=== PATIENT | female | born 1960 | race Caucasian/White ===

== ENCOUNTER 2020-02-16 15:00 | Inpatient (IN) | payer BC, SELFPAY ==
[2020-02-16 16:48] VITALS: BMI 35.4
[2020-02-17 06:51] VITALS: BP 138/60; PULSE 75; RESP 18; TEMP 36.2; O2SAT 92
[2020-02-17 07:00] VITALS: BMI 78.1
[2020-02-17] MEDS: Fenofibrate 160 MG TABLET PO (10:34)
[2020-02-17 10:35] VITALS: BP 138/60; PULSE 75
[2020-02-17] MEDS: Escitalopram Oxalate 20 MG TABLET PO (10:35)
[2020-02-17] MEDS: atenoloL 25 MG TABLET PO (10:35)
[2020-02-17] MEDS: Gabapentin 300 MG CAPSULE PO ×4 (10:35→21:58)
[2020-02-17] MEDS: buPROPion HCl XL 150 MG TAB.ER.24H PO (14:25)
[2020-02-17 14:46] VITALS: BMI 35.4
[2020-02-17 16:58] VITALS: BP 143/60; PULSE 74; TEMP 37.4
--- NOTE | 2020-02-17 17:31 | HO.PSYADMNOT ---
HPI Chief Complaint: MAJOR DEPRESSIVE DISORDER Sources of Information: patient interviewed, chart reviewed and crisis/core team assessment reviewed HPI Narrative: 60 year old woman who was admitted after she presented with SI in the context of alcohol use. She had a plan to jump off the bridge. She reports that she feels trapped in her life and that she is not able to live it the way that she wants. She has been trying to end her relationship but her BF keeps coming back and she does not want to hurt him. She acknowleges that she has been drinking more that she should. She reports that she has been increasingly sad, has no motivation and that she has little energy. She is relieved to be in the hospital and can be safe. She is interested in getting a therapist and prescriber who can help her to learn to set more limits for herself. She has firearms at home but states that she would never use them. Past Psychiatric History: No current providers. History of an OD in 2016 Medical Evaluation Reviewed: Yes PMFSH Narrative: Nil acute. Medically cleared in the ER. No acute issues. Coronavirus negative. Family History: Family history of depression Social History: Lives alone. twice. Close to her children. Substance History: Denies that alcohol is a problem. Level in ER 100, Denies other substances Trauma History: Denies Diagnostics Vital Signs (24Hr): Vital Signs - 24 hr 02/17/20 06:51 02/17/20 10:35 02/17/20 16:58 Temperature 97.2 F 99.3 F Pulse Rate 75 75 74 Respiratory Rate 18 Blood Pressure 138/60 138/60 143/60 H Pulse Oximetry 92 Body Mass Index 35.4 Meds/Allergies Meds Home Medications Medication Instructions Recorded Confirmed Type atenolol 25 mg PO DAILY 02/16/20 02/16/20 History escitalopram oxalate [Lexapro] 20 mg PO DAILY 02/16/20 02/16/20 History fenofibrate nanocrystallized 145 mg PO DAILY 02/16/20 02/16/20 History [Tricor] gabapentin 300 mg PO QID 02/16/20 02/16/20 History valacyclovir 1,000 mg PO BID PRN 02/16/20 02/16/20 History Allergies Allergies Allergy/AdvReac Type Severity Reaction Status Date / Time DAIRY PRODUCTS Allergy Unknown HIVES, Uncoded 09/17/20 16:38 VISION ISSUES Mental Status Exam Mental Status Exam Patient Appearance: Well Grooomed Level of Consciousness: Appropriate Patient Behavior: Appropriate, Good Eye Contact and Crying Mood Description: Depressed, Fearful, Flat and Sad Affect Description: Depressed, Fearful, Anxious, Flat and Sad Patient Cognition Impaired: No Ability to Follow Directions: Good Speech Pattern: Clear, Spontaneous Speech and Coherent Memory Description: Intact Hallucinations: None Delusions: Not Present Thought Process: Intact and Goal Oriented Thought Content: Circumstantial Judgement: Fair Assessment & Plan Assessment & Plan (1) Suicidal ideation: Status: Acute Code(s): R45.851 - Suicidal ideations Assessment and Plan: Safety evaluation (2) Depressed mood: Status: Acute Code(s): R45.89 - Other symptoms and signs involving emotional state Assessment and Plan: Add wellbutrin to current medication regime Patient educated on: diagnosis, medication risk/benefits and substance abuse Reason for continued inpatient stay Substantial Risk for: harm to self
[2020-02-18 06:22] VITALS: BP 107/54; PULSE 71; RESP 14; TEMP 36.4; O2SAT 95
[2020-02-18] MEDS: buPROPion HCl XL 150 MG TAB.ER.24H PO (09:06)
[2020-02-18] MEDS: Escitalopram Oxalate 20 MG TABLET PO (09:06)
[2020-02-18 09:07] VITALS: BP 107/54; PULSE 71
[2020-02-18] MEDS: Gabapentin 300 MG CAPSULE PO ×4 (09:07→23:18)
[2020-02-18] MEDS: atenoloL 25 MG TABLET PO (09:07)
[2020-02-18] MEDS: Fenofibrate 160 MG TABLET PO (09:07)
--- NOTE | 2020-02-18 19:14 | HO.PSYCHPN ---
Assessment & Plan Assessment & Plan (1) Depressed mood: Status: Acute Code(s): R45.89 - Other symptoms and signs involving emotional state Assessment and Plan: CT medication without change Refer to [facility] Anticiapte DC 02/21/20 or 02/22/20 Greater than 50% of the session was spent on counseling and/or coordination of care Subjective Subjective Date of Service: 02/18/20 Reason For Visit: MAJOR DEPRESSIVE DISORDER Subjective Notes: Conditional Voluntary Interim History: Maeve was much brighter and positive. She is finding groups helpful and she wants to go to [facility]. She was encouraged to speak with her BF about terminating the relationship while inpatient since she has support to stick to her resolve. Medication Compliance: Yes Side effects from medications: No Attending Groups: Yes Review of Systems Acute medical concerns: No Medical Review of Systems: unchanged Mental Status Exam Mental Status Exam Patient Appearance: Well Grooomed Patient Orientation: Person, Place and Time Level of Consciousness: Appropriate Patient Behavior: Appropriate Mood Description: Calm, Anxious and Nervous Affect Description: Calm and Depressed Patient Cognition Impaired: No Ability to Follow Directions: Good Speech Pattern: Clear Memory Description: Intact Thought Content: positive for Circumstantial and positive for Goal Oriented Depressive Symptoms: Isolating-Friends/Family, Feelings of Guilt and Unhappiness Judgement: Fair Judgement and Insight: Improving understanding of illness Diagnostics Vital Signs (24Hr): Vital Signs - 24 hr 02/18/20 06:22 02/18/20 09:07 Temperature 97.5 F Pulse Rate 71 71 Respiratory Rate 14 Blood Pressure 107/54 L 107/54 L Pulse Oximetry 95 Body Mass Index 35.4 Medications Medications Current Medications Generic Name Dose Route Start Last Admin Trade Name Farshadq PRN Reason Stop Dose Admin Acetaminophen 650 mg 02/17/20 00:00 Acetaminophen 325 Mg Tablet PO Q6H PRN headache/pain, mild (scale 1-3) Al Hydroxide/Mg Hydroxide 30 ml 02/17/20 00:00 Magnesium Hydrox/Alum Hydrox 30 Ml Oral.Susp PO Q6H PRN Heartburn/nausea Atenolol 25 mg 02/17/20 09:00 02/18/20 09:07 Atenolol 25 Mg Tablet PO 25 mg DAILY FORTINO Administration Protocol Bupropion HCl 150 mg 02/17/20 12:00 02/18/20 09:06 Bupropion Hcl Xl 150 Mg Tab.Er.24h PO 150 mg DAILY FORTINO Administration Escitalopram Oxalate 20 mg 02/17/20 09:00 02/18/20 09:06 Escitalopram Oxalate 20 Mg Tablet PO 20 mg DAILY FORTINO Administration Fenofibrate 160 mg 02/17/20 09:00 02/18/20 09:07 Fenofibrate 160 Mg Tablet PO 160 mg DAILY FORTINO Administration Gabapentin 300 mg 02/17/20 09:00 02/18/20 16:47 Gabapentin 300 Mg Capsule PO 300 mg QID FORTINO Administration Hydroxyzine HCl 25 mg 02/17/20 00:00 Hydroxyzine Hcl 25 Mg Tablet PO BEDTIME MRX1 PRN night time anxiety Magnesium Hydroxide 30 ml 02/17/20 00:00 Milk Of Magnesia 30 Ml Oral.Susp PO Q24H PRN Constipation Trazodone HCl 50 mg 02/17/20 00:00 Trazodone Hcl 50 Mg Tablet PO BEDTIME MRX1 PRN Insomnia Allergies Allergies Allergy/AdvReac Type Severity Reaction Status Date / Time DAIRY PRODUCTS Allergy Unknown HIVES, Uncoded 02/03/20 16:38 VISION ISSUES
[2020-02-18 23:18] VITALS: TEMP 36
[2020-02-18 23:24] VITALS: BP 141/68; PULSE 75
[2020-02-19 06:40] VITALS: BP 142/62; PULSE 70; RESP 18; TEMP 36.5
[2020-02-19 08:53] VITALS: BP 142/62; PULSE 70
[2020-02-19] MEDS: atenoloL 25 MG TABLET PO (08:53)
[2020-02-19] MEDS: Fenofibrate 160 MG TABLET PO (08:53)
[2020-02-19] MEDS: buPROPion HCl XL 150 MG TAB.ER.24H PO (08:53)
[2020-02-19] MEDS: Gabapentin 300 MG CAPSULE PO ×2 (08:54→13:29)
[2020-02-19] MEDS: Escitalopram Oxalate 20 MG TABLET PO (08:54)
--- NOTE | 2020-02-19 12:10 | HO.PSYCHPN ---
Assessment & Plan Assessment & Plan (1) Depressed mood: Status: Acute Code(s): R45.89 - Other symptoms and signs involving emotional state Assessment and Plan: less depressed (2) Suicidal ideation: Status: Acute Code(s): R45.851 - Suicidal ideations Assessment and Plan: denies today (3) Anxiety: Status: Acute Code(s): F41.9 - Anxiety disorder, unspecified Assessment and Plan: going up and down, will adjust gabapentin Greater than 50% of the session was spent on counseling and/or coordination of care Subjective Subjective Date of Service: 02/19/20 Reason For Visit: MAJOR DEPRESSIVE DISORDER Subjective Notes: Conditional Voluntary Interim History: Feeling overall ok - no si but anxiety up and down Medication Compliance: Yes Side effects from medications: No Attending Groups: Yes Review of Systems Acute medical concerns: No Medical Review of Systems: unchanged Mental Status Exam Mental Status Exam Narrative: appropriate affect good eye contact mood anxious Patient Orientation: Person, Place, Time and Situation Level of Consciousness: Awake and Alert Patient Behavior: Appropriate, Cooperative and Anxious Mood Description: Appropriate and Anxious Affect Description: Constricted Speech Pattern: Clear and Appropriate Memory Description: Intact Hallucinations: None Delusions: Not Present Thought Process: Intact Thought Content: positive for Intact Depressive Symptoms: Increased Anxiety and Muscle Tension Judgement: Good Diagnostics Vital Signs (24Hr): Vital Signs - 24 hr 02/18/20 23:18 02/18/20 23:24 02/19/20 06:40 Temperature 96.8 F 97.7 F Pulse Rate 75 70 Respiratory Rate 18 Blood Pressure 141/68 H 142/62 H 02/19/20 08:53 Temperature Pulse Rate 70 Respiratory Rate Blood Pressure 142/62 H Body Mass Index 35.4 Medications Medications Current Medications Generic Name Dose Route Start Last Admin Trade Name Freq PRN Reason Stop Dose Admin Acetaminophen 650 mg 02/17/20 00:00 Acetaminophen 325 Mg Tablet PO Q6H PRN headache/pain, mild (scale 1-3) Al Hydroxide/Mg Hydroxide 30 ml 02/17/20 00:00 Magnesium Hydrox/Alum Hydrox 30 Ml Oral.Susp PO Q6H PRN Heartburn/nausea Atenolol 25 mg 02/17/20 09:00 02/19/20 08:53 Atenolol 25 Mg Tablet PO 25 mg DAILY FORTINO Administration Protocol Bupropion HCl 150 mg 02/17/20 12:00 02/19/20 08:53 Bupropion Hcl Xl 150 Mg Tab.Er.24h PO 150 mg DAILY FORTINO Administration Escitalopram Oxalate 20 mg 02/17/20 09:00 02/19/20 08:54 Escitalopram Oxalate 20 Mg Tablet PO 20 mg DAILY FORTINO Administration Fenofibrate 160 mg 02/17/20 09:00 02/19/20 08:53 Fenofibrate 160 Mg Tablet PO 160 mg DAILY FORTINO Administration Gabapentin 300 mg 02/17/20 09:00 02/19/20 08:54 Gabapentin 300 Mg Capsule PO 300 mg QID FORTINO Administration Hydroxyzine HCl 25 mg 02/17/20 00:00 Hydroxyzine Hcl 25 Mg Tablet PO BEDTIME MRX1 PRN night time anxiety Magnesium Hydroxide 30 ml 02/17/20 00:00 Milk Of Magnesia 30 Ml Oral.Susp PO Q24H PRN Constipation Trazodone HCl 50 mg 02/17/20 00:00 Trazodone Hcl 50 Mg Tablet PO BEDTIME MRX1 PRN Insomnia Allergies Allergies Allergy/AdvReac Type Severity Reaction Status Date / Time DAIRY PRODUCTS Allergy Unknown HIVES, Uncoded 02/03/20 16:38 VISION ISSUES
[2020-02-19 16:46] VITALS: BP 147/62; PULSE 67; TEMP 36.9
[2020-02-19] MEDS: Gabapentin 400 MG CAPSULE PO ×2 (17:20→21:19)
[2020-02-20 06:22] VITALS: BP 142/63; PULSE 73; RESP 18; TEMP 35.8; O2SAT 95
[2020-02-20] MEDS: buPROPion HCl XL 150 MG TAB.ER.24H PO (09:12)
[2020-02-20] MEDS: Gabapentin 400 MG CAPSULE PO ×4 (09:12→21:53)
[2020-02-20] MEDS: Escitalopram Oxalate 20 MG TABLET PO (09:12)
[2020-02-20] MEDS: Fenofibrate 160 MG TABLET PO (09:12)
[2020-02-20] MEDS: atenoloL 25 MG TABLET PO (09:12)
[2020-02-20] MEDS: Acetaminophen 325 MG TABLET 650 MG PO (09:15)
--- NOTE | 2020-02-20 12:32 | HO.PSYCHPN ---
Assessment & Plan Assessment & Plan (1) Anxiety: Status: Acute Code(s): F41.9 - Anxiety disorder, unspecified Assessment and Plan: better with inc gabapentin 400mg qid ( from 300mg) (2) Depressed mood: Status: Acute Code(s): R45.89 - Other symptoms and signs involving emotional state Assessment and Plan: denies further si Greater than 50% of the session was spent on counseling and/or coordination of care Subjective Subjective Date of Service: 02/20/20 Reason For Visit: MAJOR DEPRESSIVE DISORDER Subjective Notes: Conditional Voluntary Interim History: Patient slept better, looking forward to dc and will start php Medication Compliance: Yes Side effects from medications: No Attending Groups: Yes Review of Systems Acute medical concerns: No Medical Review of Systems: unchanged Mental Status Exam Mental Status Exam Narrative: appropriate engagement with staff, patients Patient Appearance: Appropriate Patient Orientation: Person, Place and Time Level of Consciousness: Awake and Alert Patient Behavior: Appropriate Mood Description: Calm Affect Description: Calm Patient Cognition Impaired: No Ability to Follow Directions: Excellent Speech Pattern: Clear Hallucinations: None Delusions: Not Present Thought Process: Intact and Goal Oriented Thought Content: positive for Intact Judgement: Good Diagnostics Vital Signs (24Hr): Vital Signs - 24 hr 02/19/20 16:46 02/20/20 06:22 Temperature 98.4 F 96.5 F L Pulse Rate 67 73 Respiratory Rate 18 Blood Pressure 147/62 H 142/63 H Pulse Oximetry 95 Body Mass Index 35.4 Medications Medications Current Medications Generic Name Dose Route Start Last Admin Trade Name Freq PRN Reason Stop Dose Admin Acetaminophen 650 mg 02/17/20 00:00 02/20/20 09:15 Acetaminophen 325 Mg Tablet PO 650 mg Q6H PRN Administration headache/pain, mild (scale 1-3) Al Hydroxide/Mg Hydroxide 30 ml 02/17/20 00:00 Magnesium Hydrox/Alum Hydrox 30 Ml Oral.Susp PO Q6H PRN Heartburn/nausea Atenolol 25 mg 02/17/20 09:00 02/20/20 09:12 Atenolol 25 Mg Tablet PO 25 mg DAILY FORTINO Administration Protocol Bupropion HCl 150 mg 02/17/20 12:00 02/20/20 09:12 Bupropion Hcl Xl 150 Mg Tab.Er.24h PO 150 mg DAILY FORTINO Administration Escitalopram Oxalate 20 mg 02/17/20 09:00 02/20/20 09:12 Escitalopram Oxalate 20 Mg Tablet PO 20 mg DAILY FORTINO Administration Fenofibrate 160 mg 02/17/20 09:00 02/20/20 09:12 Fenofibrate 160 Mg Tablet PO 160 mg DAILY FORTINO Administration Gabapentin 400 mg 02/19/20 17:00 02/20/20 09:12 Gabapentin 400 Mg Capsule PO 400 mg QID FORTINO Administration Hydroxyzine HCl 25 mg 02/17/20 00:00 Hydroxyzine Hcl 25 Mg Tablet PO BEDTIME MRX1 PRN night time anxiety Magnesium Hydroxide 30 ml 02/17/20 00:00 Milk Of Magnesia 30 Ml Oral.Susp PO Q24H PRN Constipation Trazodone HCl 50 mg 02/17/20 00:00 Trazodone Hcl 50 Mg Tablet PO BEDTIME MRX1 PRN Insomnia Allergies Allergies Allergy/AdvReac Type Severity Reaction Status Date / Time DAIRY PRODUCTS Allergy Unknown HIVES, Uncoded 02/03/20 16:38 VISION ISSUES
[2020-02-20] MEDS: hydrOXYzine HCL 25 MG TABLET PO (13:26)
[2020-02-20 21:50] VITALS: BP 138/66; PULSE 72; TEMP 36.7
[2020-02-21 06:00] VITALS: BP 138/60; PULSE 65; TEMP 37.1
[2020-02-21 08:40] VITALS: BP 138/60; PULSE 65
[2020-02-21] MEDS: buPROPion HCl XL 150 MG TAB.ER.24H PO (08:40)
[2020-02-21] MEDS: Escitalopram Oxalate 20 MG TABLET PO (08:40)
[2020-02-21] MEDS: atenoloL 25 MG TABLET PO (08:40)
[2020-02-21] MEDS: Gabapentin 400 MG CAPSULE PO ×2 (08:40→13:03)
[2020-02-21] MEDS: Fenofibrate 160 MG TABLET PO (08:40)
--- NOTE | 2020-02-21 09:31 | P.PNPSI_ITS ---
Assessment & Plan Assessment & Plan (1) Depressed mood: Status: Acute Code(s): R45.89 - Other symptoms and signs involving emotional state Assessment and Plan: Much inproved with addition of wellbutrin (2) Suicidal ideation: Status: Resolved Code(s): R45.851 - Suicidal ideations Greater than 50% of the session was spent on counseling and/or coordination of care Subjective Subjective Date of Service: 02/21/20 Reason For Visit: MAJOR DEPRESSIVE DISORDER Subjective Notes: Conditional Voluntary Interim History: Maeve was able to tell her BF that the relationship is over and she experienced great relief. She is excited to go home and to participate in [facility]. Medication Compliance: Yes Side effects from medications: No Attending Groups: Yes Review of Systems Acute medical concerns: No Medical Review of Systems: unchanged Mental Status Exam Mental Status Exam Patient Appearance: Well Grooomed Patient Orientation: Person Level of Consciousness: Awake Patient Behavior: Appropriate Mood Description: Calm Affect Description: Calm Patient Cognition Impaired: No Ability to Follow Directions: Good Speech Pattern: Clear and Normal for Patient Memory Description: Intact Hallucinations: None Delusions: Not Present Thought Content: positive for Suicidal Ideation (No) and positive for Homicidal Ideation (No) Judgement: Good Judgement and Insight: Intact Diagnostics Vital Signs (24Hr): Vital Signs - 24 hr 02/20/20 21:50 02/21/20 06:00 02/21/20 08:40 Temperature 98.0 F 98.8 F Pulse Rate 72 65 65 Blood Pressure 138/66 138/60 138/60 Body Mass Index 35.4 Medications Medications Current Medications Generic Name Dose Route Start Last Admin Trade Name Freq PRN Reason Stop Dose Admin Acetaminophen 650 mg 02/17/20 00:00 02/20/20 09:15 Acetaminophen 325 Mg Tablet PO 650 mg Q6H PRN Administration headache/pain, mild (scale 1-3) Al Hydroxide/Mg Hydroxide 30 ml 02/17/20 00:00 Magnesium Hydrox/Alum Hydrox 30 Ml Oral.Susp PO Q6H PRN Heartburn/nausea Atenolol 25 mg 02/17/20 09:00 02/21/20 08:40 Atenolol 25 Mg Tablet PO 25 mg DAILY FORTINO Administration Protocol Bupropion HCl 150 mg 02/17/20 12:00 02/21/20 08:40 Bupropion Hcl Xl 150 Mg Tab.Er.24h PO 150 mg DAILY FORTINO Administration Escitalopram Oxalate 20 mg 02/17/20 09:00 02/21/20 08:40 Escitalopram Oxalate 20 Mg Tablet PO 20 mg DAILY FORTINO Administration Fenofibrate 160 mg 02/17/20 09:00 02/21/20 08:40 Fenofibrate 160 Mg Tablet PO 160 mg DAILY FORTINO Administration Gabapentin 400 mg 02/19/20 17:00 02/21/20 08:40 Gabapentin 400 Mg Capsule PO 400 mg QID FORTINO Administration Hydroxyzine HCl 25 mg 02/17/20 00:00 02/20/20 13:26 Hydroxyzine Hcl 25 Mg Tablet PO 25 mg BEDTIME MRX1 PRN Administration night time anxiety Magnesium Hydroxide 30 ml 02/17/20 00:00 Milk Of Magnesia 30 Ml Oral.Susp PO Q24H PRN Constipation Trazodone HCl 50 mg 02/17/20 00:00 Trazodone Hcl 50 Mg Tablet PO BEDTIME MRX1 PRN Insomnia Allergies Allergies Allergy/AdvReac Type Severity Reaction Status Date / Time DAIRY PRODUCTS Allergy Unknown HIVES, Uncoded 02/03/20 16:38 VISION ISSUES
--- NOTE | 2020-02-21 19:42 | P.DS_ITS ---
DS: Providers Provider Date of admission: 02/16/20 15:00 Primary care physician: Pretty Harmon NP Attending physician on admission: Mary Ellen Loco Consults: 02/16/20 16:51 Consult to Care Team Routine Comment: Reason for consultation: SI, DEPRESSION Attending physician on discharge: Mary Ellen Loco Anticipated date of discharge: 02/21/20 DS: Diagnosis Discharge Diagnosis (1) Depressed mood: Status: Acute (2) Suicidal ideation: Status: Resolved (3) Major depression, recurrent: Status: Acute Problem details: Individual was admitted with depression and SI. She was in conflict with her BF and feeling trapped. She was able to make a decision to end her relationship. Wellbutrin was added and she responded well. She accepted referral to [facility]. By the time of her DC she was calm, pleasant and looking forward to going home. Discharge Plan Discharge Anticipated Discharge Date/Time: 02/21/20 11:00 Patient Disposition: Home, Self-Care Referrals: Emani Rich (therapist) [Other] - 02/24/20 3:00 pm [facility] PHP [Other] - 02/23/20 7:00 am (An email will be sent to your [employer] account with an invitation to the assessment from Trice Valentine at the [facility]. the plan will be to start the [facility] that same day at 9AM) Jorge Chaudhry [Other] - 03/23/20 11:00 am Jorge Chaudhry [Other] - 04/18/20 11:30 am Pretty Harmon NP [Primary Care Provider] - 03/10/20 11:30 am (Follow Up appt on 03/10/2020 1130am. In Office.) Discharge Medications: New trazodone 50 mg Tablet 50 mg PO BEDTIME MRX1 PRN (Reason: Insomnia) Qty: 30 RF: 0 hydroxyzine HCl 25 mg Tablet 25 mg PO BEDTIME MRX1 PRN (Reason: night time anxiety) Qty: 30 RF: 0 bupropion HCl 150 mg Tablet Extended Release 24 Hr 150 mg PO DAILY Qty: 30 RF: 0 Continued valacyclovir 1 gram Tablet 1,000 mg PO BID PRN (Reason: Outbreak) Qty: 60 RF: 0 atenolol 25 mg Tablet 25 mg PO DAILY Qty: 30 RF: 0 gabapentin 300 mg Capsule 300 mg PO QID Qty: 120 RF: 0 escitalopram oxalate [Lexapro] 20 mg Tablet 20 mg PO DAILY Qty: 30 RF: 0 fenofibrate nanocrystallized [Tricor] 145 mg Tablet 145 mg PO DAILY Qty: 30 RF: 0 Discharge Orders: Discharge Order (Routine); Ordered 02/21/20 Ordered By: Mary Ellen Loco Diet: advance to your usual diet Activity on Discharge: As tolerated Stand Alone Forms: Community Support Discharge Date/Time: 02/21/20 14:00 Visit Report Forms: Patient Portal Discharge page Care Plan Goals: Go to your [facility] intake appointment Follow through with your psychiatry and therapy appointments Health Concerns: Depressed mood Suicidal thinking Alcohol abuse Plan of Treatment: Reduce depression Maintain safety Stay sober
== END 2020-02-21 14:00 | disposition home or self-care (01) | DRG 751 ==
PROVIDERS: Admitting Provider Psychiatry & Neurology Psychiatry; PCP Nurse Practitioner Family; Visit Provider Psychiatry & Neurology Psychiatry
DX: F33.9 Major depressive disorder, recurrent, unspecified (principal); R45.851 Suicidal ideations; K21.9 Gastro-esophageal reflux disease without esophagitis; F41.9 Anxiety disorder, unspecified; Z79.899 Other long term (current) drug therapy
CPT/HCPCS: 36415; 80051; 80076; 80307; 80320; 81001; 82565; 82947; 84520; 85025; 90715; 93005; 99232; U0003

== ENCOUNTER 2020-03-10 13:45 | Outpatient (RCR) | payer BC, SELFPAY ==
[2020-02-23 14:18] VITALS: BMI 35.4
--- NOTE | 2020-02-23 14:34 | PC.ADMIT ---
Completed via telephone d/t covid-19 and tele[employer] platform. Patient is a 60 year old female who started the PHP program today. Patient was referred by [facility] where she was hospitalized d/t increase in depressive symptoms with SI to jump off a bridge. Reportely prior to admission patient cut her L wrist superfically with a fingernail clipper and was drinking ETOH. BAL 102, Tox screen positive for marijuana. Pt was having relationship issues with her Boyfriend and reportedly broke up with him when she got home from the hospital. Patient currently denied SI. Reason why she is attending PHP pt stated, My goal is to have a healthy mind and body. Pt gave verbal permission to email her a copy of her safety plan and she agreed to utilize this if feeling safe in addition to letting staff know if she was not feeling safe. Appetite and sleep are improving. Pt reports that she will not be in the program on Friday as she has a f/u appointment regarding a biopsy she had on her vulva. Patient reports she has not had any substances since Feb 15, 2020. Strongly encouraged patient to attend online substance use groups in addition to PHP for further support. Medication verified with patient and [facility] D/C medicaiton list. Patient also stated she is on Lipitor in addition to Tricor.
--- NOTE | 2020-02-25 08:18 | PC.NURSE ---
02/24/2020 Clients case opened in treatment team. Roderick GONZALEZ
--- NOTE | 2020-02-25 08:44 | P.HPPSP_ITS ---
HPI Chief Complaint: depression Sources of Information: patient interviewed and chart reviewed HPI Narrative: 60 yo female experiencing an increase in depression, anxiety and SI due to relationship issues. While in pt she reports she terminated this relationship. She was started on Wellbutrin and has found this to be helpful. Past Psychiatric History: No current providers. Referred to [facility] [place] for psychotherapy and Dr. Chaudhry for psychopharmacology History of an OD in 2016 Medical Evaluation Reviewed: Yes [facility] Medical History Benign essential tremor Diverticulitis Hyperlipidemia Hypertension Surgical History History of appendectomy Family History: Family history of depression Social History: Lives alone. twice. Close to her children. Substance History: Sober from alcohol for 7 days Trauma History: Denies Diagnostics Vital Signs (24Hr): Body Mass Index 35.4 Meds/Allergies Meds Home Medications Medication Instructions Recorded Confirmed Type atorvastatin 40 mg PO DAILY 02/23/20 02/23/20 History Allergies Allergies Allergy/AdvReac Type Severity Reaction Status Date / Time DAIRY PRODUCTS Allergy Unknown HIVES, Uncoded 02/03/20 16:38 VISION ISSUES Mental Status Exam Mental Status Exam Patient Appearance: Well Grooomed and Appropriate Patient Orientation: Person, Place, Time and Situation Level of Consciousness: Awake and Appropriate Patient Behavior: Appropriate Mood Description: Blunted Affect Description: Blunted Patient Cognition Impaired: No Ability to Follow Directions: Excellent Speech Pattern: Clear Memory Description: Intact Hallucinations: None Delusions: Not Present Thought Process: Intact Thought Content: positive for Intact Depressive Symptoms: Increased Anxiety, Diff. Making Decisions, Increased Irritability, Crying Spells, Loss of Int. in Activity, Feelings of Worthlessness, Hopelessness, Unhappiness, Increased Fatigue, Thoughts of /Suicide (passive, without plan intent) and Loss of Energy (Pt reports today she feels her energy is improving) Judgement: Good Assessment & Plan Patient educated on: medication risk/benefits (Continue Wellbutrin 150 mg a.m. Lexapro 20 mg daily, Gabapentin 300 mg qid. Pt has available but has not used yet prn Trazodone and Hydroxyzine.) and therapeutic strategies Informed Consent: understands and further education needed Reason for continued partial hosp. stay Substantial Risk for: harm to self, inability to function and rapid decompensation Certification I certify that partial hospital treatment is medically necessary due to the symptoms and problems resulting from the patient's mental illness and the failure to treat the patient at the partial hospital level of care would likely result in the patient requiring inpatient psychiatric care which could not be prevented at a less intensive level of care.
--- NOTE | 2020-02-25 08:57 | HO.PS.ADMBH ---
HPI Chief Complaint: depression HPI Past Psychiatric History: No current providers. Referred to [facility] [place] for psychotherapy and Dr. Chaudhry for psychopharmacology History of an OD in 2016 [facility] Medical History Benign essential tremor Diverticulitis Hyperlipidemia Hypertension Surgical History History of appendectomy Family History: Family history of depression Social History: Lives alone. twice. Close to her children. Trauma History: Denies Diagnostics Vital Signs (24Hr): Body Mass Index 35.4 Meds/Allergies Meds Home Medications Medication Instructions Recorded Confirmed Type atorvastatin 40 mg PO DAILY 02/23/20 02/23/20 History Allergies Allergies Allergy/AdvReac Type Severity Reaction Status Date / Time DAIRY PRODUCTS Allergy Unknown HIVES, Uncoded 02/03/20 16:38 VISION ISSUES Assessment & Plan Certification I certify that partial hospital treatment is medically necessary due to the symptoms and problems resulting from the patient's mental illness and the failure to treat the patient at the partial hospital level of care would likely result in the patient requiring inpatient psychiatric care which could not be prevented at a less intensive level of care.
--- NOTE | 2020-03-01 15:38 | HO.PHPPROGNO ---
Subjective Subjective Date of Service: 03/01/20 Reason For Visit: depression Interim History: The meds are great. I am 15 days sober . I know I won't need alcohol or marijuana today. Pt reports regime to be effective and without side effects. Reports group to be helpful, difficult at times, but worth her efforts. Reports improved sleep. Trazodone used x 3 with efficacy. She has established a routine each morning-is getting up and getting dressed, not just changing sleepwear. Medication Compliance: Yes Side effects from medications: No Attending Groups: Yes Review of Systems Psychiatric: Reports no additional psychiatric complaints Mental Status Exam Mental Status Exam Patient Orientation: Person, Place, Time and Situation Level of Consciousness: Awake, Appropriate and Alert Patient Behavior: Appropriate, Talkative and Cooperative Mood Description: Calm Affect Description: Calm Patient Cognition Impaired: No Ability to Follow Directions: Excellent Speech Pattern: Clear, Appropriate and Spontaneous Speech Memory Description: Intact Hallucinations: None Delusions: Not Present Thought Process: Intact Thought Content: positive for Intact Judgement: Good Diagnostics Vital Signs (24Hr): Body Mass Index 35.4 Assessment & Plan Patient educated on: medication risk/benefits and therapeutic strategies Informed Consent: understands and further education needed Reason for contiued partial hosp. stay Substantial Risk for: harm to self and rapid decompensation Certification I certify that partial hospital treatment is medically necessary due to the symptoms and problems resulting from the patient's mental illness and the failure to treat the patient at the partial hospital level of care would likely result in the patient requiring inpatient psychiatric care which could not be prevented at a less intensive level of care. Greater than 50% of the session was spent on counseling and/or coordination of care Discharge Plan Discharge Attending provider: Feliberto Rubin Additional Instructions: Continue current regime Medications: No Action trazodone 50 mg Tablet 50 mg PO BEDTIME MRX1 PRN (Reason: Insomnia) Qty: 30 RF: 0 hydroxyzine HCl 25 mg Tablet 25 mg PO BEDTIME MRX1 PRN (Reason: night time anxiety) Qty: 30 RF: 0 bupropion HCl 150 mg Tablet Extended Release 24 Hr 150 mg PO DAILY Qty: 30 RF: 0 valacyclovir 1 gram Tablet 1,000 mg PO BID PRN (Reason: Outbreak) Qty: 60 RF: 0 atenolol 25 mg Tablet 25 mg PO DAILY Qty: 30 RF: 0 gabapentin 300 mg Capsule 300 mg PO QID Qty: 120 RF: 0 escitalopram oxalate [Lexapro] 20 mg Tablet 20 mg PO DAILY Qty: 30 RF: 0 fenofibrate nanocrystallized [Tricor] 145 mg Tablet 145 mg PO DAILY Qty: 30 RF: 0 atorvastatin 40 mg Tablet 40 mg PO DAILY RF: 0
--- NOTE | 2020-03-08 15:38 | HO.PHPPROGNO ---
Subjective Subjective Date of Service: 03/07/20 Reason For Visit: depression Interim History: Maeve reports medication regime to be effective and without SE. She reports 21 days of sobriety. Anxiety is intermittent, but finds that when she took the Gabapentin 400 mg qid it was more helpful-currently using 300 mg qid for tremor/sleep. Discussed titration. She reports feeling very comfortable in groups to address her issues and process feelings. States she is feeling improved. Medication Compliance: Yes Side effects from medications: No Attending Groups: Yes Review of Systems Review of Systems Yes all other systems are reviewed and are negative Psychiatric: Reports anxiety Mental Status Exam Mental Status Exam Patient Orientation: Person, Place, Time and Situation Level of Consciousness: Awake, Appropriate and Alert Patient Behavior: Appropriate, Cooperative and Anxious Mood Description: Anxious Affect Description: Anxious Patient Cognition Impaired: No Ability to Follow Directions: Excellent Speech Pattern: Clear, Appropriate and Spontaneous Speech Memory Description: Intact Hallucinations: None Delusions: Not Present Thought Process: Intact and Goal Oriented Thought Content: positive for Intact Depressive Symptoms: Increased Anxiety Judgement: Good Diagnostics Vital Signs (24Hr): Body Mass Index 35.4 Assessment & Plan Patient educated on: diagnosis, medication risk/benefits, substance abuse and therapeutic strategies Informed Consent: understands and further education needed Reason for contiued partial hosp. stay Substantial Risk for: harm to self, inability to function and rapid decompensation Certification I certify that partial hospital treatment is medically necessary due to the symptoms and problems resulting from the patient's mental illness and the failure to treat the patient at the partial hospital level of care would likely result in the patient requiring inpatient psychiatric care which could not be prevented at a less intensive level of care. Greater than 50% of the session was spent on counseling and/or coordination of care Discharge Plan Discharge Attending provider: Feliberto Rubin Additional Instructions: Increase Gabapentin to 400 mg 4 times daily to address anxiety-early sobriety contributing to sx. Medications: New gabapentin 400 mg capsule 400 mg PO QID Qty: 28 RF: 1 Discontinued gabapentin 300 mg Capsule 300 mg PO QID Qty: 120 RF: 0 No Action trazodone 50 mg Tablet 50 mg PO BEDTIME MRX1 PRN (Reason: Insomnia) Qty: 30 RF: 0 hydroxyzine HCl 25 mg Tablet 25 mg PO BEDTIME MRX1 PRN (Reason: night time anxiety) Qty: 30 RF: 0 bupropion HCl 150 mg Tablet Extended Release 24 Hr 150 mg PO DAILY Qty: 30 RF: 0 valacyclovir 1 gram Tablet 1,000 mg PO BID PRN (Reason: Outbreak) Qty: 60 RF: 0 atenolol 25 mg Tablet 25 mg PO DAILY Qty: 30 RF: 0 escitalopram oxalate [Lexapro] 20 mg Tablet 20 mg PO DAILY Qty: 30 RF: 0 fenofibrate nanocrystallized [Tricor] 145 mg Tablet 145 mg PO DAILY Qty: 30 RF: 0 atorvastatin 40 mg Tablet 40 mg PO DAILY RF: 0
== END 2020-03-10 23:55 | disposition home or self-care (01) ==
LOC: HO.PHPA 13:45
PROVIDERS: Visit Provider Psychiatry & Neurology Psychiatry
DX: F32.9 Major depressive disorder, single episode, unspecified (principal); F41.9 Anxiety disorder, unspecified
CPT/HCPCS: 90853; 99204; 99213

== ENCOUNTER 2021-02-27 19:37 | Emergency (ER) | payer BC, SELFPAY ==
--- NOTE | ~2021-02-27 | CT_ITS ---
EXAMINATION: CT ABDOMEN AND PELVIS WITH CONTRAST CLINICAL INFORMATION: History of diverticulitis COMPARISON: Multiple priors, most recently 07/03/2018 TECHNIQUE: Multidetector volumetric images were obtained from the superior aspect of the liver through the pubic symphysis following administration 85 mL of Omnipaque 350 intravenous contrast. Sagittal and coronal reformatted images were obtained on the technologist's workstation. Oral contrast: No This CT examination was performed using dose optimization techniques as appropriate, variously including the following: *Automated exposure control *Adjustment of mA and/or kV according to patient size (this includes techniques or standardized protocols for targeted exams where dose is matched to indication/reason for exam; i.e. extremities or head) *Use of iterative reconstruction technique DLP: 639 mGy-cm FINDINGS: LUNG BASES: The visualized lung bases are unremarkable. LIVER, GALLBLADDER, AND BILIARY TREE: The liver is normal in size, shape, and attenuation. No focal hepatic lesion or biliary ductal dilatation is present. There is cholelithiasis and/or small polyps or adenomyomatosis. No pericholecystic fluid. PANCREAS: Unremarkable. SPLEEN: Unremarkable. ADRENAL GLANDS: Unremarkable. KIDNEYS AND URETERS: The kidneys are normal in size, shape, and attenuation. No hydronephrosis, hydroureter, or calculi seen. No perinephric stranding. BLADDER: Unremarkable. GASTROINTESTINAL TRACT: Sigmoid colon is underdistended limiting assessment. There is similar appearing mild long segment wall thickening throughout the sigmoid colon, without pericolic fat stranding. Favor chronic diverticular disease. Appendectomy. Stomach and small bowel unremarkable. There is haziness of the central small bowel mesentery, with perivascular sparing, and shotty mesenteric lymph nodes reflective of mesenteric panniculitis, more pronounced than on the previous exams. ABDOMINAL WALL: No significant hernia is appreciated. LYMPH NODES: Normal. VASCULAR: Aorta is atherosclerotic but normal caliber. Patent venous structures. PELVIC VISCERA: Uterus and adnexa unremarkable. OSSEOUS STRUCTURES: No acute or suspicious osseous abnormalities. CT/CT abdomen pelvis w con IMPRESSION: * Underdistended sigmoid colon limits assessment, however there does appear to be mild generalized wall thickening of the sigmoid colon. In the setting of diverticulosis, favor chronic diverticular disease, although mild sigmoiditis may be contributing to this appearance. No evidence of diverticulitis. Consider nonemergent colonoscopy, if not recently performed. 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 Mesenteric panniculitis can be associated with autoimmune disease and may in some situations be a manifestation of a paraneoplastic process (e.g., associated with lymphoma or colon carcinoma). * Irregular wall thickening of the gallbladder redemonstrated, with polypoid excrescences versus cholelithiasis. As discussed above, polyps or adenomyomatosis are considered in addition to cholelithiasis. Recommend nonemergent right upper quadrant ultrasound for further evaluation.
[2021-02-27 20:06] VITALS: BP 125/67; PULSE 92; RESP 20; TEMP 36.2; O2SAT 100; BMI 28.3
[2021-02-27 22:31] VITALS: BP 166/83; PULSE 82; RESP 20; TEMP 37.1; O2SAT 98
--- NOTE | 2021-02-27 22:47 | ED_ITS ---
HPI - Nausea/Vomiting/Diarrhea General Chief complaint: Nausea/Vomiting/Diarrhea Stated complaint: vomitting Time Seen by Provider: 02/27/21 22:39 History of Present Illness HPI Narrative: Patient is a 61-year-old female presents today with having generalized malaise. Minimal coughing. Positive change in smell and taste. Positive nausea vomiting diarrhea. Patient has had previous appendectomy done 2 years ago. History of diverticulitis in the past presented with having diffuse abdominal pain. Patient's significant other also had abdominal pain nausea vomiting. Patient came in for further evaluation. Minimal coughing that is nonproductive. Patient is not immunized for COVID. Related Data Home Medications Medication Instructions Recorded Confirmed atorvastatin 40 mg tablet 40 mg PO DAILY 02/23/20 02/23/20 Previous Rx's Medication Instructions Recorded atenolol 25 mg tablet 25 mg PO DAILY #30 tab 02/21/20 bupropion HCl 150 mg 24 hr tablet, 150 mg PO DAILY #30 tab 02/21/20 extended release escitalopram oxalate 20 mg tablet 20 mg PO DAILY #30 tab 02/21/20 (Lexapro) fenofibrate nanocrystallized 145 145 mg PO DAILY #30 tab 02/21/20 mg tablet (Tricor) hydroxyzine HCl 25 mg tablet 25 mg PO BEDTIME MRX1 PRN #30 tab 02/21/20 trazodone 50 mg tablet 50 mg PO BEDTIME MRX1 PRN #30 tab 02/21/20 valacyclovir 1 gram tablet 1,000 mg PO BID PRN #60 tab 02/21/20 gabapentin 400 mg capsule 400 mg PO QID #28 cap 03/08/20 ondansetron HCl 4 mg tablet 4 mg PO Q8H PRN #10 tab 02/28/21 (Zofran) Allergies Allergy/AdvReac Type Severity Reaction Status Date / Time DAIRY PRODUCTS Allergy Unknown HIVES, Uncoded 02/28/21 00:23 VISION ISSUES Review of Systems Review of Systems: Positive coughing upper respiratory symptom Positive nausea vomiting diarrhea Positive generalized malaise Yes all other systems are reviewed and are negative PMFSH Past Medical History Attestation statement: The following information was validated with the patient. 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 Hyperlipidemia Hypertension Lichen sclerosus Palpitations Tonsillectomy planned Surgical History History of appendectomy History of blepharoplasty History of ptosis repair History of tubal ligation Status post LASIK surgery Social History Social History Household Members: None Alcohol intake: never Patient Tobacco Use Status: Never used Tobacco Use of substances other than those prescribed or required for medical reasons: No Advance Directives: No Advance Directives Information Provided: No Patient : No service: No Sexual orientation: Straight/Heterosexual Physical Exam Vital Signs: Vital Signs: Last Vital Signs Temp 99.8 F 02/27/21 23:55 Pulse 80 02/27/21 23:55 Resp 20 02/27/21 23:55 BP 141/59 H 02/27/21 23:55 Pulse Ox 100 02/27/21 23:55 Body Mass Index 28.3 Appearance: Alert. Oriented X3. No acute distress. Eyes: Pupils equal, round and reactive to light. ENT: Pharynx normal. Neck: Normal inspection. Neck supple. No lymph nodes noted. No crepitus CVS: Normal heart rate and rhythm. Pulses normal. Normal S1 and S2 Respiratory: No respiratory distress. Breath sounds normal. No Wheezing. No rales Abdomen: Soft and nontender. No rigidity. No distention. good BS x4 Skin: Skin warm and dry. Normal skin color. Normal skin turgor. Extremities: No lower extremity edema. Neurovascular intact to all extremities. No Lacerations. No Rash Neuro: Oriented X 3. No motor deficit. No sensory deficit. Moving all extermities. No slurred speech MDM - Nausea/Vomiting/Diarrhea MDM Narrative Medical decision making narrative: Patient complaining of nausea vomiting diarrhea generalized malaise. CT scan of the abdomen showed no obstruction or abscess. 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 The significance of this finding was relayed to patient. Including the risk of lymphoma risk of colon cancer. This will require follow-up on an outpatient basis. Patient is also showed mild sigmoiditis. No evidence for diverticulitis. Patient well- appearing repeat exam abdomen soft nontender. Will give patient Zofran for nausea. Will discharge patient home. Currently in stable condition. Differential Diagnosis Differential diagnosis: Likely gastroenteritis and dehydration Medical Records Attestation: I reviewed the patient's medical records. Lab Data Attestation: I reviewed the patient's lab results. Result diagrams: 02/27/21 23:47 02/27/21 23:47 Labs: Lab Results 02/27/21 02/27/21 02/27/21 Range/Units 23:47 23:47 23:47 WBC 7.3 (4.8-10.8) X10*3/uL RBC 5.16 (4.20-5.50) X10*6/uL Hgb 16.0 (12.0-16.0) g/dl Hct 46.8 (37-47) % MCV 90.7 (80-98) fL MCH 31.0 (27.0-33.0) pg MCHC 34.2 (31.0-35.0) g/dl RDW 12.2 (11.0-16.0) % Plt Count 194 (160-400) X10*3/uL MPV 10.0 (9.4-12.3) fL Immature Gran % (Auto) 0.3 (0.0-0.4) % Neut % (Auto) 90.4 H (45-73) % Lymph % (Auto) 4.6 L (20-40) % [place] % (Auto) 4.5 (2-11) % Eos % (Auto) 0.1 (0-4) % Baso % (Auto) 0.1 (0-2) % Lymph # (Auto) 0.3 L (1.2-4.9) X10*3/uL [place] # (Auto) 0.3 (0.1-1.2) X10*3/uL Eos # (Auto) 0.0 (0.0-0.4) X10*3/uL Baso # (Auto) 0.0 (0.0-0.2) X10*3/uL Abs Immat Gran (auto) 0.02 (0.00-0.03) X10*3/uL Absolute Neuts (auto) 6.6 (2.0-8.3) X10*3/uL Absolute Nucleated RBC 0.000 (0.0-0.012) X10*3/uL Nucleated RBC % (auto) 0.0 (0.0-0.2) /100WBC Smear Tech's Comments VERIFIED Sodium 139 (135-145) mmol/L Potassium 3.9 (3.3-5.1) mmol/L Chloride 103 (96-108) mmol/L Carbon Dioxide 23 (22-29) mmol/L Anion Gap 17 (12-20) BUN 14 (9-16) mg/dL Creatinine 1.00 (0.5-1.4) mg/dL Estim Creat Clear Calc 59.8 Estimated GFR 56 Random Glucose 116 H (60-115) mg/dL Calcium 10.0 (8.4-10.2) mg/dL Total Bilirubin 0.6 (0.0-1.0) mg/dL Direct Bilirubin 0.3 (0.0-0.5) mg/dL AST 24 (5-31) U/L ALT 67 H (0-31) U/L Alkaline Phosphatase 86 (39-117) U/L Total Protein 7.9 (6.5-8.0) g/dL Albumin 4.8 (3.5-5.0) g/dL Lipase 6 L (8-78) U/L COVID-19 (STONEY) Negative (Negative) COVID-19 Clin Com See Note Discharge Plan Discharge Clinical Impression: Gastroenteritis Patient Disposition: Home, Self-Care Instructions: Acute Nausea and Vomiting (ED), Acute Diarrhea (ED) Additional Instructions: 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 This could represent lymphoma versus colon cancer. A colonoscopy needs to be schedule on an outpatient basis. A copy of the CT report was given to her. Prescriptions: New ondansetron HCl [Zofran] 4 mg tablet 4 mg PO Q8H PRN (Reason: nausea and vomiting) Qty: 10 RF: 0 No Action trazodone 50 mg Tablet 50 mg PO BEDTIME MRX1 PRN (Reason: Insomnia) Qty: 30 RF: 0 hydroxyzine HCl 25 mg Tablet 25 mg PO BEDTIME MRX1 PRN (Reason: night time anxiety) Qty: 30 RF: 0 bupropion HCl 150 mg Tablet Extended Release 24 Hr 150 mg PO DAILY Qty: 30 RF: 0 valacyclovir 1 gram Tablet 1,000 mg PO BID PRN (Reason: Outbreak) Qty: 60 RF: 0 atenolol 25 mg Tablet 25 mg PO DAILY Qty: 30 RF: 0 escitalopram oxalate [Lexapro] 20 mg Tablet 20 mg PO DAILY Qty: 30 RF: 0 fenofibrate nanocrystallized [Tricor] 145 mg Tablet 145 mg PO DAILY Qty: 30 RF: 0 atorvastatin 40 mg Tablet 40 mg PO DAILY RF: 0 gabapentin 400 mg capsule 400 mg PO QID Qty: 28 RF: 1 Referrals: Pretty Harmon NP [Primary Care Provider] - 2 days
[2021-02-27 23:52] LABS: Basophils Percent Auto 0.1 % (0-2); Eosinophils Percent Auto 0.1 % (0-4); Hematocrit 46.8 % (37-47); Imm Gran Abs Auto 0.02 X10*3/uL (0.00-0.03); Imm Gran Pct Auto 0.3 % (0.0-0.4); Lymphocytes Absolute Auto 0.3 X10*3/uL (1.2-4.9); Lymphocytes Percent Auto 4.6 % (20-40); MANUAL DIFF FLAG SCAN; Mean Corpuscular HGB Conc 34.2 g/dl (31.0-35.0); Mean Corpuscular Volume 90.7 fL (80-98); Monocytes Absolute Auto 0.3 X10*3/uL (0.1-1.2); Monocytes Percent Auto 4.5 % (2-11); Neutrophils Absolute Auto 6.6 X10*3/uL (2.0-8.3); Neutrophils Percent Auto 90.4 % (45-73); Platelet Count 194 X10*3/uL (160-400); Red Blood Count 5.16 X10*6/uL (4.20-5.50); Red Cell Distribution Width 12.2 % (11.0-16.0); SCAN SMEAR FLAG 1; White Blood Count 7.3 X10*3/uL (4.8-10.8)
[2021-02-27] MEDS: 0.9 % Sodium Chloride 1,000 ML 999 ML IV (23:53)
[2021-02-27] MEDS: ondansetron HCL 4 MG/2 ML VIAL IVPUSH (23:53)
[2021-02-27 23:55] VITALS: BP 141/59; PULSE 80; RESP 20; TEMP 37.7; O2SAT 100
[2021-02-28 00:13] LABS: SLIDE REVIEW VERIFIED
[2021-02-28 00:17] LABS: COVID-19 Test Negative (Negative); IDNOW Serial# 9DD0AD1C
[2021-02-28 00:28] LABS: Alanine Aminotransferase 67 U/L (0-31); Albumin Level 4.8 g/dL (3.5-5.0); Alkaline Phosphatase 86 U/L (39-117); Anion Gap 17 (12-20); Aspartate Amino Transferase 24 U/L (5-31); Bilirubin Direct 0.3 mg/dL (0.0-0.5); Bilirubin Total 0.6 mg/dL (0.0-1.0); Blood Urea Nitrogen 14 mg/dL (9-16); Carbon Dioxide 23 mmol/L (22-29); Chloride 103 mmol/L (96-108); Creatinine Clr Calc Pharmacy 59.8; Estimated Glomerular Filt Rate 56; Glucose Random 116 mg/dL (60-115); Lipase 6 U/L (8-78); Potassium 3.9 mmol/L (3.3-5.1); Sodium 139 mmol/L (135-145); Total Protein 7.9 g/dL (6.5-8.0)
[2021-02-28] MEDS: HYDROmorphone HCl 0.5 MG/0.5 ML SYRINGE IVPUSH (00:31)
[2021-02-28] MEDS: iohexoL 350 MG/ML 100 ML INFUS..BTL 85 ML IV (01:20)
[2021-02-28 02:37] VITALS: BP 119/66; PULSE 79; RESP 18; TEMP 37; O2SAT 99
== END 2021-02-28 02:38 | disposition home or self-care (01) ==
PROVIDERS: Emergency Provider Emergency Medicine Emergency Medical Services; PCP Nurse Practitioner Family
DX: K52.9 Noninfective gastroenteritis and colitis, unspecified (principal); R11.2 Nausea with vomiting, unspecified; Z20.822 Contact with and (suspected) exposure to COVID-19; Z79.899 Other long term (current) drug therapy
CPT/HCPCS: 36415; 74177; 80048; 80076; 83690; 85025; 87635; 96361; 96374; 96375; 99284; J1170; J2405; Q9967

== ENCOUNTER 2021-03-29 11:46 | Emergency (ER) | payer BC, SELFPAY ==
--- NOTE | 2021-03-29 | ECG_ITS ---
Test Reason : DIZZINESS Blood Pressure : / mmHG Vent. Rate : 065 BPM Atrial Rate : 065 BPM P-R Int : 236 ms QRS Dur : 076 ms QT Int : 434 ms P-R-T Axes : 054 -06 017 degrees QTc Int : 451 ms Sinus rhythm with 1st degree A-V block Nonspecific T wave abnormality Inferior leads Abnormal ECG When compared with ECG of 16-FEB-2020 14:45, T wave inversion less evident in Inferior leads T wave inversion no longer evident in Lateral leads Referred By: Generic ED Physician Electronically Signed By:PATTI ULRICH MD
--- NOTE | ~2021-03-29 | CT_ITS ---
EXAMINATION: CT HEAD WITHOUT CONTRAST CLINICAL INFORMATION: Dizziness for 3 days. COMPARISON: None TECHNIQUE: Contiguous axial imaging was performed from the skull base to vertex without intravenous administration of contrast. This CT examination was performed using dose optimization techniques as appropriate, variously including the following: *Automated exposure control *Adjustment of mA and/or kV according to patient size (this includes techniques or standardized protocols for targeted exams where dose is matched to indication/reason for exam; i.e. extremities or head) *Use of iterative reconstruction technique DLP: 641.5 mGy-cm FINDINGS: There is no evidence of acute intracranial hemorrhage or territorial infarction. No abnormal mass effect or midline shift is seen. Mccall to white matter differentiation is well preserved. No extra-axial fluid collections are identified. The ventricles are normal in size. There is no abnormal attenuation within the brain parenchyma. The osseous structures and soft tissues are normal. Bilateral mastoid air cells are well aerated. Lobulated soft tissue masses are identified within the included visualized part of the right maxillary sinus and ipsilateral nasal cavity, most consistent with sinonasal polyposis. The frontal, sphenoidal, visualized part of the left maxillary and left ethmoidal air cells are otherwise unremarkable. CT/CT head/brain wo con IMPRESSION: 1. No acute intracranial pathology. 2. Abnormal right maxillary sinus and the ipsilateral nasal cavity showing lobulated soft tissue masses, most consistent with sinonasal polyposis. Nonemergent ENT consultation is recommended.
[2021-03-29 11:55] VITALS: BP 147/57; PULSE 60; RESP 18; TEMP 36.8; O2SAT 98; BMI 28.3
[2021-03-29 12:48] LABS: MANUAL DIFF FLAG NO
[2021-03-29 12:54] LABS: Basophils Absolute Auto 0.1 X10*3/uL (0.0-0.2); Basophils Percent Auto 1.2 % (0-2); Eosinophils Absolute Auto 0.3 X10*3/uL (0.0-0.4); Eosinophils Percent Auto 6.6 % (0-4); Hematocrit 43.4 % (37.0-47.0); Imm Gran Abs Auto 0.01 X10*3/uL (0.00-0.03); Imm Gran Pct Auto 0.2 % (0.0-0.4); Lymphocytes Absolute Auto 1.3 X10*3/uL (1.2-4.9); Lymphocytes Percent Auto 26.1 % (20-40); Mean Corpuscular HGB Conc 32.3 g/dl (31.0-35.0); Mean Corpuscular Hemoglobin 30.6 pg (27.0-33.0); Mean Corpuscular Volume 94.8 fL (80.0-98.0); Mean Platelet Volume 10.5 fL (9.4-12.3); Monocytes Absolute Auto 0.4 X10*3/uL (0.1-1.2); Neutrophils Absolute Auto 2.9 x10*3/uL (2.0-8.3); Neutrophils Percent Auto 58.9 % (45-73); Platelet Count 157 X10*3/uL (160-400); Red Blood Count 4.58 X10*6/uL (4.20-5.50); Red Cell Distribution Width 12.5 % (11.0-16.0)
[2021-03-29 13:04] LABS: Anion Gap 12 (12-20); Blood Urea Nitrogen 10 mg/dL (9-16); Calcium 9.3 mg/dL (8.4-10.2); Carbon Dioxide 27 mmol/L (22-29); Chloride 108 mmol/L (96-108); Creatinine Clr Calc Pharmacy 71.2; Estimated Glomerular Filt Rate > 60; Glucose Random 85 mg/dL (60-115); Potassium 4.2 mmol/L (3.3-5.1); Sodium 143 mmol/L (135-145)
--- NOTE | 2021-03-29 15:02 | ED_ITS ---
HPI - Dizziness General Chief Complaint: Dizziness Stated Complaint: dizziness Time Seen by Provider: 03/29/21 14:48 Source: patient and family Mode of arrival: wheelchair Limitations: no limitations History of Present Illness HPI Narrative: 61-year-old female with a past medical history of hypertension, hyperlipidemia, depression,essential tremor for the last 3 days. Patient tells me that she feels very unsteady with movement. Dizziness is also worsened with head movement. No vision changes, nausea, vomiting. No weakness, numbness, tingling, chest pain. Does have a history of vertigo and feels this is similar. Normally she is able to take [id number] Dramamine for her symptoms and that helps. However, this time it has not helped. No recent changes in her medication. Related Data Home Medications Medication Instructions Recorded Confirmed atorvastatin 40 mg tablet 40 mg PO DAILY 02/23/20 02/23/20 Previous Rx's Medication Instructions Recorded atenolol 25 mg tablet 25 mg PO DAILY #30 tab 02/21/20 bupropion HCl 150 mg 24 hr tablet, 150 mg PO DAILY #30 tab 02/21/20 extended release escitalopram oxalate 20 mg tablet 20 mg PO DAILY #30 tab 02/21/20 (Lexapro) fenofibrate nanocrystallized 145 145 mg PO DAILY #30 tab 02/21/20 mg tablet (Tricor) hydroxyzine HCl 25 mg tablet 25 mg PO BEDTIME MRX1 PRN #30 tab 02/21/20 trazodone 50 mg tablet 50 mg PO BEDTIME MRX1 PRN #30 tab 02/21/20 valacyclovir 1 gram tablet 1,000 mg PO BID PRN #60 tab 02/21/20 gabapentin 400 mg capsule 400 mg PO QID #28 cap 03/08/20 ondansetron HCl 4 mg tablet 4 mg PO Q8H PRN #10 tab 02/28/21 (Zofran) meclizine 25 mg tablet 25 mg PO TID PRN #30 tab 03/29/21 Allergies Allergy/AdvReac Type Severity Reaction Status Date / Time DAIRY PRODUCTS Allergy Unknown HIVES, Uncoded 02/28/21 00:23 VISION ISSUES Review of Systems Review of Systems: Yes all other systems are reviewed and are negative Constitutional: Constitutional: Reports no additional constitutional complaints, Denies body ache(s), Denies chills, Denies fever(s), Denies headache(s) and Denies weakness Eyes: Eyes: Reports no additional eye complaints and Denies change in vision ENT: Reports system reviewed and no additional complaints, except as documented, Reports dizziness, Denies headache(s), Denies nasal congestion, Denies nasal discharge and Denies neck pain Cardiovascular: Cardiovascular: Reports no additional cardiovascular complaints, Denies chest pain, Denies leg edema and Denies dyspnea Respiratory: Respiratory: Reports no additional respiratory complaints, Denies cough and Denies dyspnea Gastrointestinal: Gastrointestinal: Reports no additional gastrointestinal complaints, Denies abdominal pain, Denies diarrhea, Denies nausea and Denies vomiting Genitourinary: Genitourinary: Reports no additional female genitourinary complaints and Denies urinary incontinence Musculoskeletal: Musculoskeletal: Reports no additional musculoskeletal complaints, Denies back pain, Denies arthralgias, Denies joint swelling, Denies neck pain, Denies numbness and Denies tingling Integumentary/Breasts: Skin/Breast: Reports system reviewed and no additional complaints, except as docu and Denies rash Neurologic: Reports system reviewed and no additional complaints, except as documented, Denies Abnormal speech present, Reports dizziness, Denies headache(s), Denies numbness, Denies tingling and Denies weakness PMFSH Past Medical History Attestation statement: The following information was validated with the patient. 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 Hyperlipidemia Hypertension Lichen sclerosus Palpitations Tonsillectomy planned Surgical History History of appendectomy History of blepharoplasty History of ptosis repair History of tubal ligation Status post LASIK surgery Social History Social History Household Members: None Alcohol intake: never Patient Tobacco Use Status: Never used Tobacco Advance Directives: No Advance Directives Information Provided: No service: No Sexual orientation: Straight/Heterosexual Physical Exam Vital Signs: Vital Signs: Last Vital Signs Temp 98.2 F 03/29/21 17:21 Pulse 67 03/29/21 17:21 Resp 18 03/29/21 17:21 BP 148/64 H 03/29/21 17:21 Pulse Ox 99 03/29/21 17:21 Body Mass Index 28.3 Const: General: cooperative, healthy appearing, comfortable and no acute distress Orientation/consciousness: patient oriented x3 Limitations: no limitations HENMT: Head: Yes normal to inspection Ears: hearing grossly normal benito aterally and TM's normal bilaterally General nose exam: Normal external nose present Face and sinus: Yes normal facial exam Mouth: Normal oral and palatal mucosa present Throat: Yes posterior oropharynx normal Eyes: General: appearance normal, both eyes and all related structures Pupils: Equal, round and reactive pupils present Neck: Neck: Yes normal visual inspection Chest: Chest palpation & inspection: normal inspection of the chest Resp: Effort & Inspection: normal respiratory effort Auscultation: clear to auscultation bilaterally Cardio: Rate: regular rate Rhythm: regular rhythm Peripheral pulses: Peripheral pulses 2+ throughout GI: Inspection: Yes normal to inspection Palpation (GI): Soft to palpation and nontender Auscultation: normal bowel sounds Back/Spine/Pelvis: Thoracic/Lumbar Spine: thoracic and lumbar spine normal to inspection Skin: General skin exam: no rashes or lesions noted Neuro: General: patient oriented x3, no focal motor deficits and normal sensation to monofilament Cranial nerves: Yes CN's II-XII intact bilaterally, Yes Equal, round and reactive pupils present, Yes Bilaterally intact EOM present, Yes Nystagmus not present, Yes Normal facial strength present and Yes Midline tongue present Cognition (Neuro): normal cognition Speech: No Abnormal speech present Gait exam (Neuro): Ataxic gait present Motor exam (neuro): 5/5 motor strength present throughout Sensory Exam: Normal double simultaneous stimulation for sensation Coordination: [id number]-bs-[id number] test normal and kwso-me-stuk test normal Extrem: General: Yes normal to inspection Course Course Course Narrative: 61-year-old female here with unsteady gait for the last 3 days. She describes it as feeling like she is off-balance and she will fall. She is also reporting some dizziness with head movement right to left. No other complaints. On exam neuro is intact. However when I attempted to ambulate the patient she is very unsteady and almost fell. Will check labs, EKG, orthostatics, CT head. Will attempt meclizine 1710-labs are unremarkable. EKG, orthostatics and CT head are negative. I re- examined the patient. She is feeling much improved. I did get her up and ambulated her with a steady gait. Likely vertigo. Discussed with the family and patient. Plan for discharge home with meclizine. Reviewed worrisome signs and symptoms of when to return to the emergency department. Comfortable dis charge home. MDM - Dizziness MDM Narrative Medical decision making narrative: CVA-less likely with improving exam/CT head negative with symptoms greater than 3 days, orthostatic hypotension, vertigo, e lectrolyte abnormality Medical Records Attestation: I reviewed the patient's medical records. Lab Data Attestation: I reviewed the patient's lab results. Result diagrams: 03/29/21 12:42 03/29/21 12:42 Labs: Lab Results 03/29/21 03/29/21 03/29/21 Range/Units 12:42 12:42 12:42 WBC 5.0 (4.8-10.8) X10*3/uL RBC 4.58 (4.20-5.50) X10*6/uL Hgb 14.0 (12.0-16.0) g/dl Hct 43.4 (37.0-47.0) % MCV 94.8 (80.0-98.0) fL MCH 30.6 (27.0-33.0) pg MCHC 32.3 (31.0-35.0) g/dl RDW 12.5 (11.0-16.0) % Plt Count 157 L (160-400) X10*3/uL MPV 10.5 (9.4-12.3) fL Immature Gran % (Auto) 0.2 (0.0-0.4) % Neut % (Auto) 58.9 (45-73) % Lymph % (Auto) 26.1 (20-40) % [place] % (Auto) 7.0 (2-11) % Eos % (Auto) 6.6 H (0-4) % Baso % (Auto) 1.2 (0-2) % Lymph # (Auto) 1.3 (1.2-4.9) X10*3/uL [place] # (Auto) 0.4 (0.1-1.2) X10*3/uL Eos # (Auto) 0.3 (0.0-0.4) X10*3/uL Baso # (Auto) 0.1 (0.0-0.2) X10*3/uL Abs Immat Gran (auto) 0.01 (0.00-0.03) X10*3/uL Absolute Neuts (auto) 2.9 (2.0-8.3) x10*3/uL Absolute Nucleated RBC 0.000 (0.0-0.012) X10*3/uL Nucleated RBC % (auto) 0.0 (0.0-0.2) /100WBC Sodium 143 (135-145) mmol/L Potassium 4.2 (3.3-5.1) mmol/L Chloride 108 (96-108) mmol/L Carbon Dioxide 27 (22-29) mmol/L Anion Gap 12 (12-20) BUN 10 (9-16) mg/dL Creatinine 0.84 (0.5-1.4) mg/dL Estim Creat Clear Calc 71.2 Estimated GFR > 60 Random Glucose 85 (60-115) mg/dL Calcium 9.3 D (8.4-10.2) mg/dL Magnesium 2.2 (1.6-2.6) mg/dL Total Bilirubin 0.5 (0.0-1.0) mg/dL Direct Bilirubin < 0.2 (0.0-0.5) mg/dL AST 27 (5-31) U/L ALT 40 H (0-31) U/L Alkaline Phosphatase 79 (39-117) U/L Troponin I High Sens < 3.5 (<3.5-17.0) ng/L Total Protein 7.5 (6.5-8.0) g/dL Albumin 4.6 (3.5-5.0) g/dL Urine Color Urine Appearance Urine pH (5.0-8.0) Ur Specific Martin (1.005-1.025) Urine Protein (NEG-TRACE) MG/DL Urine Glucose (UA) (NEG) MG/DL Urine Ketones (NEG) MG/DL Urine Blood (NEG) Urine Nitrite (NEG) Ur Leukocyte Esterase (NEG) 03/29/21 Range/Units 15:30 WBC (4.8-10.8) X10*3/uL RBC (4.20-5.50) X10*6/uL Hgb (12.0-16.0) g/dl Hct (37.0-47.0) % MCV (80.0-98.0) fL MCH (27.0-33.0) pg MCHC (31.0-35.0) g/dl RDW (11.0-16.0) % Plt Count (160-400) X10*3/uL MPV (9.4-12.3) fL Immature Gran % (Auto) (0.0-0.4) % Neut % (Auto) (45-73) % Lymph % (Auto) (20-40) % [place] % (Auto) (2-11) % Eos % (Auto) (0-4) % Baso % (Auto) (0-2) % Lymph # (Auto) (1.2-4.9) X10*3/uL [place] # (Auto) (0.1-1.2) X10*3/uL Eos # (Auto) (0.0-0.4) X10*3/uL Baso # (Auto) (0.0-0.2) X10*3/uL Abs Immat Gran (auto) (0.00-0.03) X10*3/uL Absolute Neuts (auto) (2.0-8.3) x10*3/uL Absolute Nucleated RBC (0.0-0.012) X10*3/uL Nucleated RBC % (auto) (0.0-0.2) /100WBC Sodium (135-145) mmol/L Potassium (3.3-5.1) mmol/L Chloride (96-108) mmol/L Carbon Dioxide (22-29) mmol/L Anion Gap (12-20) BUN (9-16) mg/dL Creatinine (0.5-1.4) mg/dL Estim Creat Clear Calc Estimated GFR Random Glucose (60-115) mg/dL Calcium (8.4-10.2) mg/dL Magnesium (1.6-2.6) mg/dL Total Bilirubin (0.0-1.0) mg/dL Direct Bilirubin (0.0-0.5) mg/dL AST (5-31) U/L ALT (0-31) U/L Alkaline Phosphatase (39-117) U/L Troponin I High Sens (<3.5-17.0) ng/L Total Protein (6.5-8.0) g/dL Albumin (3.5-5.0) g/dL Urine Color YELLOW Urine Appearance CLEAR Urine pH 6.0 (5.0-8.0) Ur Specific Martin 1.020 (1.005-1.025) Urine Protein NEG (NEG-TRACE) MG/DL Urine Glucose (UA) NEG (NEG) MG/DL Urine Ketones NEG (NEG) MG/DL Urine Blood NEG (NEG) Urine Nitrite NEG (NEG) Ur Leukocyte Esterase NEG (NEG) Imaging Data CT scan - head: Attestation: I personally reviewed and interpreted this imaging study as follows: Radiologist's impression: FINDINGS: There is no evidence of acute intracranial hemorrhage or territorial infarction. No abnormal mass effect or midline shift is seen. Mccall to white matter differentiation is well preserved. No extra-axial fluid collections are identified. The ventricles are normal in size. There is no abnormal attenuation within the brain parenchyma. The osseous structures and soft tissues are normal. Bilateral mastoid air cells are well aerated. Lobulated soft tissue masses are identified within the included visualized part of the right maxillary sinus and ipsilateral nasal cavity, most consistent with sinonasal polyposis. The frontal, sphenoidal, visualized part of the left maxillary and left ethmoidal air cells are otherwise unremarkable. ? CT/CT head/brain wo con IMPRESSION: ? 1. No acute intracranial pathology. 2. Abnormal right maxillary sinus and the ipsilateral nasal cavity showing lobulated soft tissue masses, most consistent with sinonasal polyposis. Nonemergent ENT consultation is recommended. ECG Data Attestation: I personally reviewed and interpreted this ECG as follows: ECG interpretation date: 03/29/21 ECG interpretation time: 12:35 Interpretation: Sinus rhythm with first-degree AV block with a rate of 65, normal ID, normal QRS, normal QT Discharge Plan Discharge Clinical Impression: Vertigo Patient Disposition: Home, Self-Care Instructions: Vertigo (ED) Additional Instructions: Change positions slowly Your lab work, EKG and CT scan are normal. However, if your symptoms are persistent or worsening or you have associated vision changes you should return to the emergency department as discussed Prescriptions: New meclizine 25 mg tablet 25 mg PO TID PRN (Reason: dizziness) Qty: 30 RF: 0 No Action trazodone 50 mg Tablet 50 mg PO BEDTIME MRX1 PRN (Reason: Insomnia) Qty: 30 RF: 0 hydroxyzine HCl 25 mg Tablet 25 mg PO BEDTIME MRX1 PRN (Reason: night time anxiety) Qty: 30 RF: 0 bupropion HCl 150 mg Tablet Extended Release 24 Hr 150 mg PO DAILY Qty: 30 RF: 0 valacyclovir 1 gram Tablet 1,000 mg PO BID PRN (Reason: Outbreak) Qty: 60 RF: 0 atenolol 25 mg Tablet 25 mg PO DAILY Qty: 30 RF: 0 escitalopram oxalate [Lexapro] 20 mg Tablet 20 mg PO DAILY Qty: 30 RF: 0 fenofibrate nanocrystallized [Tricor] 145 mg Tablet 145 mg PO DAILY Qty: 30 RF: 0 atorvastatin 40 mg Tablet 40 mg PO DAILY RF: 0 gabapentin 400 mg capsule 400 mg PO QID Qty: 28 RF: 1 ondansetron HCl [Zofran] 4 mg tablet 4 mg PO Q8H PRN (Reason: nausea and vomiting) Qty: 10 RF: 0 Referrals: Pretty Harmon NP [Primary Care Provider] - 2 days Interventions: ED Discharge Assessment Last Done: 03/29/21 17:25 Discharge Date/Time: 03/29/21 17:25
[2021-03-29 15:28] LABS: Alanine Aminotransferase 40 U/L (0-31); Albumin Level 4.6 g/dL (3.5-5.0); Alkaline Phosphatase 79 U/L (39-117); Aspartate Amino Transferase 27 U/L (5-31); Bilirubin Direct < 0.2 mg/dL (0.0-0.5); Bilirubin Total 0.5 mg/dL (0.0-1.0); Magnesium 2.2 mg/dL (1.6-2.6); Total Protein 7.5 g/dL (6.5-8.0)
[2021-03-29 15:34] VITALS: BP 147/63; PULSE 61
[2021-03-29] MEDS: Meclizine HCl 25 MG TABLET 50 MG PO (15:34)
[2021-03-29 15:35] VITALS: BP 148/62; BP 151/73; PULSE 63; PULSE 67
[2021-03-29 15:36] VITALS: BP 148/62; PULSE 67; RESP 16; TEMP 37; O2SAT 99
[2021-03-29 15:43] LABS: Troponin-I High Sensitivity < 3.5 ng/L (<3.5-17.0)
[2021-03-29 15:44] LABS: Appearance Urine CLEAR; Color Urine YELLOW; Glucose Urine UA NEG (NEG); Leukocyte Esterase Urine NEG (NEG); Nitrite Urine NEG (NEG); Urine Blood NEG (NEG); Urine Ketones NEG (NEG); Urine Protein NEG (NEG-TRACE)
[2021-03-29 17:21] VITALS: BP 148/64; PULSE 67; RESP 18; TEMP 36.8; O2SAT 99
--- NOTE | 2021-03-29 17:21 | PC.NURSE ---
pt medically cleared for discharge. discharge summary given and explained. no complaints, pt alert and oriented, vss. pt discharged via wheelchair accompanied by friend
== END 2021-03-29 17:25 | disposition home or self-care (01) ==
PROVIDERS: Nurse Practitioner Family; Emergency Provider Emergency Medicine; PCP Nurse Practitioner Family
DX: R42 Dizziness and giddiness (principal); I10 Essential (primary) hypertension
CPT/HCPCS: 36415; 70450; 80048; 80076; 81003; 83735; 84484; 85025; 93005; 99284

== ENCOUNTER 2021-09-18 08:13 | Outpatient (REF) | payer BC, SELFPAY ==
--- NOTE | ~2021-09-18 | US_ITS ---
EXAMINATION: US ABDOMEN COMPLETE CLINICAL INFORMATION: Abnormal CT, gallbladder. COMPARISON: CT abdomen and pelvis 02/28/2021. TECHNIQUE: Real-time imaging of the abdominal viscera. FINDINGS: PANCREAS: The pancreas is obscured by overlying gas. ABDOMINAL AORTA: The proximal, mid, and distal segments are normal in caliber. INFERIOR VENA CAVA: Visualized portions are normal. LIVER: The liver is normal in size. The liver contour is normal. The liver shows diffuse increased echogenicity. No focal hepatic lesion. There is no intrahepatic biliary duct dilatation seen. GALLBLADDER: Gallbladder wall thickness is 0.70 cm. The gallbladder is physiologically distended without evidence of stones, sludge, polyps, or pericholecystic fluid. COMMON BILE DUCT: Normal in caliber measuring 0.6 cm in diameter. RIGHT KIDNEY: Normal. No hydronephrosis. No renal calculi or focal parenchymal lesions. The kidney measures 11.0 cm in maximum dimension. LEFT KIDNEY: Normal. No hydronephrosis. No renal calculi or focal parenchymal lesions. The kidney measures 10.2 cm in maximum dimension. SPLEEN: Normal. The spleen measures 10.3 cm in maximum dimension. FREE FLUID: None. US/US abdomen complete IMPRESSION: Mild hepatic steatosis without focal lesion. Gallbladder wall thickening. The rest of the abdominal ultrasound is unremarkable.
== END 2021-09-18 08:14 | disposition home or self-care (01) ==
LOC: HO.US 08:13
PROVIDERS: Visit Provider Internal Medicine
DX: R93.2 Abnormal findings on diagnostic imaging of liver and biliary tract (principal)
CPT/HCPCS: 76700

== ENCOUNTER 2021-09-21 06:06 | Day surgery (SDC) | payer BC, SELFPAY ==
--- NOTE | 2021-09-20 08:10 | HO.ANESPROP2 ---
Documented by User: Eveline Ponce NP 09/20/21 08:10 HPI - Anesthesia Eval Consult details Narrative: 61yo F for Colonoscopy [facility] Active Problems Active Problems: All Active Problems (Updated 09/14/21 @ 13:15 by Felisha Saul RN) Depressed mood (Acute) Major depression, recurrent (Acute) Past Medical History Medical History (Updated 09/14/21 @ 13:15 by Felisha Saul RN) Benign essential tremor Cold sore Diverticulitis DUB (dysfunctional uterine bleeding) Family history of CVA Family history of diabetes mellitus (DM) Family history of muscular dystrophy Family hx of hypertension Family hx-leukemia GERD (gastroesophageal reflux disease) 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 Hyperlipidemia Hypertension Lichen sclerosus Palpitations Tonsillectomy planned Tremor Surgical History Surgical History (Updated 09/14/21 @ 13:15 by Felisha Saul RN) History of appendectomy History of blepharoplasty History of ptosis repair History of tubal ligation Hx of colonoscopy Status post LASIK surgery Social History Social History Household Members: None Alcohol intake: never Patient Tobacco Use Status: Never used Tobacco Are you DNR?: No Advance Directives: No Advance Directives Information Provided: Yes Nutrition Risks: No Nutritional Risk service: No Sexual orientation: Straight/Heterosexual Meds Allergies Allergy/AdvReac Type Severity Reaction Status Date / Time DAIRY PRODUCTS Allergy Unknown HIVES, Uncoded 09/14/21 13:15 VISION ISSUES Home Medications Medication Instructions Recorded Confirmed Last Taken Type atorvastatin 40 mg tablet 40 mg PO DAILY 02/23/20 09/14/21 02/23/20 07:00 History Exam Exam Date and Time: September 20, 2021 0810 Assessment and Plan Assessment Anesthesia Assessment: Chart Reviewed Documented by User: Adelaida Gonzalez MD 09/21/21 07:32 PMF Past Medical History Medical History (Updated 09/14/21 @ 13:15 by Felisha Saul RN) Benign essential tremor Cold sore Diverticulitis DUB (dysfunctional uterine bleeding) Family history of CVA Family history of diabetes mellitus (DM) Family history of muscular dystrophy Family hx of hypertension Family hx-leukemia GERD (gastroesophageal reflux disease) 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 [place] everything . Reassured that anesthesia different today) Social History Social History Household Members: None Alcohol intake: never Patient Tobacco Use Status: Never used Tobacco Are you DNR?: No Advance Directives: No Advance Directives Information Provided: Yes Nutrition Risks: No Nutritional Risk service: No Sexual orientation: Straight/Heterosexual Meds Allergies Allergy/AdvReac Type Severity Reaction Status Date / Time DAIRY PRODUCTS Allergy Unknown HIVES, Uncoded 09/14/21 13:15 VISION ISSUES Home Medications Medication Instructions Recorded Confirmed Last Taken Type atorvastatin 40 mg tablet 40 mg PO DAILY 02/23/20 09/14/21 02/23/20 07:00 History Exam Height,Weight and Vital Signs: Height 5 ft 5 in Weight 79.379 kg Vital Signs Temp Pulse Resp BP Pulse Ox 09/21/21 06:28 96.3 F L 85 18 144/65 H 99 Airway Mallampati Class: II TM Dist: >3cm Neck ROM: Full Denture: Upper Partial: Lower Heart: RRR Lungs: CTAB Assessment and Plan Assessment Anesthesia Assessment: Anesthesia Plan Discussed Final Anesthetic Review Family History of Problems with Anesthesia: No History of Problems with Anesthesia: Yes (?Had conscious sedation for last colonoscopy. [place] everything . Reassured that anesthesia different today) NPO: Yes ASA Class: II Final Preanesthetic Review: No Changes in Pt Med Stat, Meds/Allgs Chart Reviewed, Consent Obtained/Reviewed and Anes Risks/Benef Reviewed Patient Risk: Low Procedure Risk: Low Assessment/Block/Sedation in SS: Assess/Block/Sedation-SS Anesthetic Plan Anesthetic Plan: MAC: Disposition: Standard PACU
[2021-09-21 06:28] VITALS: BP 144/65; PULSE 85; RESP 18; TEMP 35.7; O2SAT 99; BMI 29.1
[2021-09-21] MEDS: Lactated Ringers 1,000 ML 100 ML IVCONT (06:44)
--- NOTE | 2021-09-21 08:34 | P.BOP_ITS ---
Brief Operative Note Date of Service: 09/21/21 Pre-op diagnosis: Screening Post-op diagnosis: other (Diverticulosis) Procedure: Colonoscopy to the cecum and TI Surgeon: Wisam Sun Anesthesia: MAC Was an [employer] used for this Procedure?: No Estimated blood loss (mL): 0 Pathology: none sent Condition: stable Disposition: PACU
[2021-09-21 08:35] VITALS: BP 91/35; PULSE 58; RESP 16; TEMP 36.1; O2SAT 97
[2021-09-21 08:54] VITALS: BP 128/64; PULSE 61; RESP 16; TEMP 36.1; O2SAT 99
--- NOTE | 2021-09-21 19:39 | OP_ITS ---
SURGEON: Wisam Sun MD INDICATIONS: The patient presents for evaluation of colorectal cancer screening. Full consent was obtained from her for this, including risks of bleeding and perforation. PREOPERATIVE DIAGNOSIS: Colorectal cancer screening. POSTOPERATIVE DIAGNOSIS: PROCEDURE PERFORMED: Colonoscopy to the cecum and terminal ileum. ESTIMATED BLOOD LOSS: COMPLICATIONS: ANESTHESIA: Monitored anesthesia care. ASSISTANTS: SPECIMENS: POSTOPERATIVE DIAGNOSES: Colorectal cancer screening, sigmoid diverticulosis, and internal hemorrhoids. DESCRIPTION OF PROCEDURE: The patient was placed in the left lateral decubitus position. The digital rectal exam revealed no abnormalities. The Olympus video pediatric colonoscope was entered into the rectum and advanced easily to the cecum. Once in the cecum, I did identify normal-appearing cecal pouch with appendiceal orifice and a normal-appearing ileocecal valve. The terminal ileum was cannulated and appeared normal. The scope was withdrawn back in the colon. The entire cecum and ileocecal valve appeared normal. The scope was slowly withdrawn assessing all mucosal surfaces carefully. Preparation was excellent. I did not visualize any sign of polyps, colitis, nor angiodysplasia. There was a mild amount of sigmoid diverticulosis. In the rectum, scope was retroflexed visualizing internal hemorrhoids, but no other pathology. The rectal mucosa appeared normal. Scope was straightened and withdrawn from the patient. She tolerated the procedure well and was returned to recovery area in stable condition. IMPRESSION: 1. Diverticulosis. 2. Internal hemorrhoids. PLAN: Given the negative exam and negative family history, I would recommend a followup colonoscopy in 10 years for further screening. She will otherwise see me on a p.r.n. basis. Of note, a recent gallbladder ultrasound was negative for gallstones. She has otherwise been asymptomatic in that regard. MD SVEN Francis/DANNIE / [id number]
== END 2021-09-21 10:00 | disposition home or self-care (01) ==
PROVIDERS: Visit Provider Internal Medicine
PROC: 0DJD8ZZ Inspection of Lower Intestinal Tract, Via Natural or Artificial Opening Endoscopic (ICD-10-PCS; CPT 45378; principal; 2021-09-21 07:30)
DX: Z12.11 Encounter for screening for malignant neoplasm of colon (principal); K57.30 Diverticulosis of large intestine without perforation or abscess without bleeding; K64.8 Other hemorrhoids; Z87.19 Personal history of other diseases of the digestive system; E78.00 Pure hypercholesterolemia, unspecified; G25.0 Essential tremor; F32.9 Major depressive disorder, single episode, unspecified; Z79.899 Other long term (current) drug therapy; Z98.890 Other specified postprocedural states
CPT/HCPCS: 45378

== ENCOUNTER 2022-05-17 05:07 | Emergency (ER) | payer BC, SELFPAY ==
--- NOTE | 2022-05-17 | ECG_ITS ---
Test Reason : LOW HEART RATE Blood Pressure : / mmHG Vent. Rate : 046 BPM Atrial Rate : 046 BPM P-R Int : 250 ms QRS Dur : 080 ms QT Int : 466 ms P-R-T Axes : 053 013 009 degrees QTc Int : 407 ms Sinus bradycardia with 1st degree A-V block Nonspecific T wave abnormality Abnormal ECG When compared with ECG of 29-MAR-2021 12:35, Nonspecific T wave abnormality now evident in Lateral leads Referred By: Devika Castaneda Electronically Signed By:KAHLIL AHUJA MD
--- NOTE | ~2022-05-17 | XR_ITS ---
EXAMINATION: XR ANKLE, RIGHT CLINICAL INFORMATION: Swelling and pain COMPARISON: None TECHNIQUE: 2 views of the right ankle. FINDINGS: There is fracture dislocation of the right ankle. There is a disc placed oblique fracture of the distal fibular shaft. The distal fibula is displaced laterally with respect to the ankle mortise by approximately 7 mm. There is a transverse fracture of the medial malleolus. The medial malleolus is displaced inferiorly and medially with respect to the more proximal tibia. There is unstable ankle mortise. There is diffuse soft tissue swelling and ankle joint effusion. Calcaneal spurs. XR/XR ankle RT min 3V IMPRESSION: Right ankle fracture and dislocation.
--- NOTE | ~2022-05-17 | XR_ITS ---
EXAMINATION: XR ANKLE, RIGHT CLINICAL INFORMATION: Status post reduction COMPARISON: None TECHNIQUE: AP, lateral, and mortise views of the right ankle. FINDINGS: The right ankle is in a cast with somewhat normal alignment of right fibular fracture status post reduction. Ankle mortise appears normal. There is bimalleolar soft tissue swelling. XR/XR ankle RT 2V IMPRESSION: The right ankle is in a cast with somewhat normal alignment of right fibular fracture status post reduction. There is bimalleolar soft tissue swelling.
[2022-05-17 05:15] VITALS: BP 116/55; BP 138/72; PULSE 49; PULSE 60; RESP 18; TEMP 36.4; O2SAT 93; O2SAT 96; BMI 29.9
--- NOTE | 2022-05-17 05:30 | PC.NURSE ---
PT a&ox4, reports 10/10 pain to the R ankle. Reports feeling dizzy and falling, hitting head on floor. Denies LOC. + pedal pulse. IV established, labs drawn and sent to lab. EKG obtained.
[2022-05-17 05:57] LABS: MANUAL DIFF FLAG NO
[2022-05-17 05:58] LABS: Basophils Absolute Auto 0.1 X10*3/uL (0.0-0.2); Basophils Percent Auto 1.2 % (0-2); Eosinophils Absolute Auto 0.3 X10*3/uL (0.0-0.4); Eosinophils Percent Auto 6.7 % (0-4); Hematocrit 37.7 % (37.0-47.0); Imm Gran Abs Auto 0.01 X10*3/uL (0.00-0.03); Imm Gran Pct Auto 0.2 % (0.0-0.4); Lymphocytes Absolute Auto 0.7 X10*3/uL (1.2-4.9); Lymphocytes Percent Auto 15.5 % (20-40); Mean Corpuscular HGB Conc 31.8 g/dl (31.0-35.0); Mean Corpuscular Hemoglobin 30.6 pg (27.0-33.0); Mean Corpuscular Volume 96.2 fL (80.0-98.0); Mean Platelet Volume 10.3 fL (9.4-12.3); Monocytes Absolute Auto 0.3 X10*3/uL (0.1-1.2); Monocytes Percent Auto 5.8 % (2-11); Neutrophils Absolute Auto 3.1 x10*3/uL (2.0-8.3); Neutrophils Percent Auto 70.6 % (45-73); Platelet Count 163 X10*3/uL (160-400); Red Blood Count 3.92 X10*6/uL (4.20-5.50); Red Cell Distribution Width 12.3 % (11.0-16.0); White Blood Count 4.3 X10*3/uL (4.8-10.8)
[2022-05-17 06:13] LABS: Alanine Aminotransferase 27 U/L (0-31); Albumin Level 4.1 g/dL (3.5-5.0); Alkaline Phosphatase 69 U/L (39-117); Anion Gap 10 (12-20); Aspartate Amino Transferase 19 U/L (5-31); Bilirubin Total 0.6 mg/dL (0.0-1.0); Blood Urea Nitrogen 11 mg/dL (9-16); Calcium 8.9 mg/dL (8.4-10.2); Carbon Dioxide 28 mmol/L (22-29); Chloride 108 mmol/L (96-108); Creatinine Clr Calc Pharmacy 57.3; Estimated Glomerular Filt Rate 52; Glucose Random 112 mg/dL (60-115); Potassium 4.1 mmol/L (3.3-5.1); Sodium 142 mmol/L (135-145); Total Protein 6.4 g/dL (6.5-8.0)
[2022-05-17 06:20] LABS: Troponin-I High Sensitivity 3.5 ng/L (<3.5-17.0)
--- NOTE | 2022-05-17 06:42 | ED_ITS ---
HPI - Extremity Injury (Lower) General Chief Complaint: Extremity Injury, Lower Stated Complaint: RT ANKLE INJURY ?FX Time Seen by Provider: 05/17/22 06:28 Source: patient Mode of arrival: EMS History of Present Illness HPI Narrative: 62-year-old female who fell dizzy on getting up to go to the bathroom, lost her balance and fell injuring her right ankle as well as her head but denies any loss of consciousness or use of anticoagulation. She otherwise denies any recent fever, chills, alcohol use and does smoke marijuana on occasion but otherwise has no GI or symptoms. Related Data Home Medications Medication Instructions Recorded Confirmed atorvastatin 40 mg tablet 40 mg PO DAILY 02/23/20 09/14/21 Previous Rx's Medication Instructions Recorded atenolol 25 mg tablet 25 mg PO DAILY #30 tabs 02/21/20 bupropion HCl 150 mg 24 hr tablet, 150 mg PO DAILY #30 tabs 02/21/20 extended release escitalopram oxalate 20 mg tablet 20 mg PO DAILY #30 tabs 02/21/20 (Lexapro) fenofibrate nanocrystallized 145 145 mg PO DAILY #30 tabs 02/21/20 mg tablet (Tricor) hydroxyzine HCl 25 mg tablet 25 mg PO BEDTIME MRX1 PRN night 02/21/20 time anxiety #30 tabs trazodone 50 mg tablet 50 mg PO BEDTIME MRX1 PRN Insomnia 02/21/20 #30 tabs valacyclovir 1 gram tablet 1,000 mg PO BID PRN Outbreak #60 02/21/20 tabs gabapentin 400 mg capsule 400 mg PO QID #28 caps 03/08/20 ondansetron HCl 4 mg tablet 4 mg PO Q8H PRN nausea and 02/28/21 (Zofran) vomiting #10 tabs meclizine 25 mg tablet 25 mg PO TID PRN dizziness #30 tabs 03/29/21 Allergies Allergy/AdvReac Type Severity Reaction Status Date / Time DAIRY PRODUCTS Allergy Unknown HIVES, Uncoded 09/14/21 13:15 VISION ISSUES Review of Systems Review of Systems: Pertinent positives and negatives as stated in HPI. 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 Hyperlipidemia Hypertension Lichen sclerosus Palpitations Tonsillectomy planned Tremor Surgical History History of appendectomy History of blepharoplasty History of ptosis repair History of tubal ligation Hx of colonoscopy Status post LASIK surgery Social History Social History Household Members: None Alcohol intake: former Patient Tobacco Use Status: Never used Tobacco Smoked in Last 30 Days: No Use of substances other than those prescribed or required for medical reasons: Yes Substance Use Type: Marijuana Substance Use Frequency: Occasionally Last Used Substance: Days (ago) Advance Directives: No Advance Directives Information Provided: Yes Patient : No service: No Sexual orientation: Straight/Heterosexual Physical Exam Vital Signs: Vital Signs: Last Vital Signs Temp 98.5 F 05/17/22 10:04 Pulse 57 05/17/22 10:04 Resp 12 05/17/22 10:04 BP 132/64 05/17/22 10:04 Pulse Ox 99 05/17/22 10:04 O2 Del Method 05/17/22 10:04 BMI result Body Mass Index 29.9 VITAL SIGNS: Reviewed. GENERAL: Well developed, well nourished, in no acute distress. HEAD: Normocephalic/atraumatic EYES: PERRLA, EOMI EARS: Ext canals without abnormality OROPHARYNX: no oral lesions noted, posterior pharynx clear LUNGS: Normal breath sounds. No adventitious sounds or accessory muscle use. SpO2<93> CARDIOVASCULAR: Regular rate and rhythm without noted murmurs ABDOMEN: Soft, non-tender, non-distended with bowel sounds. MUSCULOSKELETAL: No tenderness, deformities, or effusions noted on gross inspection. EXTREMITIES: No cyanosis, clubbing or edema; RIGHT ANKLE: There is obvious deformity to the medial aspect, no midfoot tenderness, sensation is intact, foot is warm and capillary refills less than 3 seconds, palpable DP there is tenderness over the medial malleolus which and unable to palpate the PT at that position SKIN: Inspection of the skin reveals no rashes NEUROLOGIC: Alert and oriented x 4. Strength and sensation to light touch were grossly intact x 4. Medications Administered Discontinued Medications Generic Name Dose Route Start Last Admin Trade Name Lester PRN Reason Stop Dose Admin Bupivacaine HCl 28 ml 05/17/22 08:45 05/17/22 11:39 Bupivacaine Mpf 0.5% 30 Ml Vial INTRAARTIC 05/17/22 08:46 28 ml ONCE ONE Administration Fentanyl 25 mcg 05/17/22 08:03 05/17/22 08:30 Fentanyl Citrate/Pf 100 Mcg/2 Ml Vial IVPUSH 05/17/22 08:04 25 mcg ONCE ONE Administration Protocol Hydromorphone HCl 0.5 mg 05/17/22 10:15 05/17/22 10:31 Hydromorphone Hcl 0.5 Mg/0.5 Ml Syringe IVPUSH 05/17/22 10:16 0.5 mg ONCE ONE Administration Protocol Ketorolac Tromethamine 15 mg 05/17/22 08:03 05/17/22 08:30 Ketorolac Tromethamine 30 Mg/Ml Vial IVPUSH 05/17/22 08:04 15 mg ONCE ONE Administration Lidocaine HCl 28 ml 05/17/22 08:40 05/17/22 11:10 Lidocaine Hcl 1 % Mpf 30 Ml Vial INTRAARTIC 05/17/22 08:41 28 ml ONCE ONE Administration Protocol Medical Decision Making Medical Decision Making MDM Narrative: 62-year-old female with mechanical fall and obvious fracture dislocation of her right ankle. On review of laboratory investigations there is no evidence of infection or anemia and EKG does not show any acute arrhythmia, and x-ray is positive for right ankle fracture dislocation. 1147: Patient will be placed in a posterior/stirrup splint and given crutch training, nonweightbearing with strict instructions to keep the lower extremity elevated and follow up with Orthopedics in 1 week for intervention. Patient's pain is well controlled at present. We attempted to ambulate the patient with crutches, but she was far too unstead, however within attempts using the walker she was able to ambulate well and safely. She is otherwise discharged home in stable condition. Differential Diagnosis Differential Diagnoses: The differential diagnosis associated with the presentation includes Fracture dislocation Admission/Observation Consideration of admission/observation: Escalation of care including admission/observation considered Consult Healthcare Provider Management of the patient was discussed with: Sulfur Chloride Operator [id number]: Davonte wiggins texted the orthopedic PA with images of patient's right ankle. 0809: Orthopedics rec reduction and splint with f/u in a week. Lab Data MDM Lab Attestation statement: I reviewed the patient's lab results. Please see discussion above Result Diagrams: 05/17/22 05:43 05/17/22 05:43 Labs: Lab Results 05/17/22 05/17/22 05/17/22 Range/Units 05:43 05:43 05:43 WBC 4.3 L (4.8-10.8) X10*3/uL RBC 3.92 L (4.20-5.50) X10*6/uL Hgb 12.0 (12.0-16.0) g/dl Hct 37.7 (37.0-47.0) % MCV 96.2 (80.0-98.0) fL MCH 30.6 (27.0-33.0) pg MCHC 31.8 (31.0-35.0) g/dl RDW 12.3 (11.0-16.0) % Plt Count 163 (160-400) X10*3/uL MPV 10.3 (9.4-12.3) fL Immature Gran % (Auto) 0.2 (0.0-0.4) % Neut % (Auto) 70.6 (45-73) % Lymph % (Auto) 15.5 L (20-40) % [place] % (Auto) 5.8 (2-11) % Eos % (Auto) 6.7 H (0-4) % Baso % (Auto) 1.2 (0-2) % Lymph # (Auto) 0.7 L (1.2-4.9) X10*3/uL [place] # (Auto) 0.3 (0.1-1.2) X10*3/uL Eos # (Auto) 0.3 (0.0-0.4) X10*3/uL Baso # (Auto) 0.1 (0.0-0.2) X10*3/uL Abs Immat Gran (auto) 0.01 (0.00-0.03) X10*3/uL Absolute Neuts (auto) 3.1 (2.0-8.3) x10*3/uL Absolute Nucleated RBC 0.000 (0.0-0.012) X10*3/uL Nucleated RBC % (auto) 0.0 (0.0-0.2) /100WBC Sodium 142 (135-145) mmol/L Potassium 4.1 (3.3-5.1) mmol/L Chloride 108 (96-108) mmol/L Carbon Dioxide 28 (22-29) mmol/L Anion Gap 10 L (12-20) BUN 11 (9-16) mg/dL Creatinine 1.06 (0.5-1.4) mg/dL Estim Creat Clear Calc 57.3 Estimated GFR 52 Random Glucose 112 (60-115) mg/dL Calcium 8.9 (8.4-10.2) mg/dL Total Bilirubin 0.6 (0.0-1.0) mg/dL AST 19 (5-31) U/L ALT 27 (0-31) U/L Alkaline Phosphatase 69 (39-117) U/L Troponin I High Sens 3.5 (<3.5-17.0) ng/L Total Protein 6.4 L (6.5-8.0) g/dL Albumin 4.1 (3.5-5.0) g/dL Independent Interpretation I performed an independent interpretation of an: EKG Interpretation: Sinus bradycardia with first-degree AV block (this is chronic), HR-46, no STEMI, CA is prolonged as mentioned, QRS/QTC is within normal limits. Radiology Impression Radiologist Impression: My interpretation of the radiologist impression of the imaging study is in agreement. Procedures Orthopedic Fracture Reduction Fracture #1: Time Out Performed: No Side: right Fracture Reduction Location: tibia and fibula Analgesia: hematoma block Technique: direct manipulation and traction/counter-traction Post Reduction X-rays Demonstrate: anatomical reduction Post-reduction neuro exam: intact Post-reduction vascular exam: intact Splint Applied: Yes Patient Tolerated Procedure: well Additional Comments: Patient received a total of 20 mils injected under direct ultrasound, 10 mL of 0.5% Sensorcaine and 10 mL of 1% lidocaine. Critical Care Time Critical Care Time Critical Care Time: Yes Total Critical Care Time: 60 Attestation: I personally attest to this time spent taking care of the patient. Discharge Plan Discharge Clinical Impression: Fracture dislocation of right ankle Patient Disposition: Home, Self-Care Instructions: Ankle Fracture (ED), Ankle Dislocation (ED) Additional Instructions: 1. Resume all home medications as prescribed. 2. Tylenol 1000 mg, orally, every 6 hours as needed for pain control. Do not exceed 4000 mg within 24 hours. 3. Ibuprofen 400 mg, orally with milk or food, every 6 hours as needed for pain control. You may take this with Tylenol for improved symptom relief. 4. It is very important that you keep your right lower extremity elevated as much as possible to help reduce swelling. In addition, apply ice for 10-15 minutes, 3 to 4 times a day. Do not place any weight on your right ankle at any time while standing. 5. A referral has been provided to you for follow-up with Orthopedics, you should call the office today as they will see you in approximately 1 week. 6. Please follow-up with your primary care provider so that they are aware of the fracture as well. Return to the ER for any worsening of symptoms, swelling, fevers, chills Prescriptions: No Action trazodone 50 mg Tablet 50 mg PO BEDTIME MRX1 PRN (Reason: Insomnia) Qty: 30 0RF hydroxyzine HCl 25 mg Tablet 25 mg PO BEDTIME MRX1 PRN (Reason: night time anxiety) Qty: 30 0RF bupropion HCl 150 mg Tablet Extended Release 24 Hr 150 mg PO DAILY Qty: 30 0RF valacyclovir 1 gram Tablet 1,000 mg PO BID PRN (Reason: Outbreak) Qty: 60 0RF atenolol 25 mg Tablet 25 mg PO DAILY Qty: 30 0RF escitalopram oxalate [Lexapro] 20 mg Tablet 20 mg PO DAILY Qty: 30 0RF fenofibrate nanocrystallized [Tricor] 145 mg Tablet 145 mg PO DAILY Qty: 30 0RF atorvastatin 40 mg Tablet 40 mg PO DAILY gabapentin 400 mg capsule 400 mg PO QID Qty: 28 1RF ondansetron HCl [Zofran] 4 mg tablet 4 mg PO Q8H PRN (Reason: nausea and vomiting) Qty: 10 0RF meclizine 25 mg tablet 25 mg PO TID PRN (Reason: dizziness) Qty: 30 0RF Referrals: Leandro Campos MD [Physician] - 1 week (Right ankle fracture/dislocation, there was an overlying abrasion to the medial aspect but no obvious) Pretty Harmon NP [Primary Care Provider] -
[2022-05-17 07:56] VITALS: BP 108/40; PULSE 51; RESP 11; TEMP 37; O2SAT 99
[2022-05-17] MEDS: fentaNYL citrate/PF 100 MCG/2 ML VIAL 25 MCG IVPUSH (08:30)
[2022-05-17] MEDS: Ketorolac Tromethamine 30 MG/ML VIAL 15 MG IVPUSH (08:30)
--- NOTE | 2022-05-17 08:32 | PC.NURSE ---
pt medicated for 10/10 pain in right ankle.
[2022-05-17 10:04] VITALS: BP 132/64; PULSE 57; RESP 12; TEMP 36.9; O2SAT 99
[2022-05-17] MEDS: HYDROmorphone HCl 0.5 MG/0.5 ML SYRINGE IVPUSH (10:31)
[2022-05-17] MEDS: Lidocaine HCl 1 % MPF 30 ML VIAL 28 ML INTRAARTIC (11:10)
== END 2022-05-17 13:11 | disposition home or self-care (01) ==
PROVIDERS: Emergency Medicine; Emergency Provider Student in an Organized Health Care Education/Training Program; PCP Nurse Practitioner Family
DX: S82.891A Other fracture of right lower leg, initial encounter for closed fracture (principal); R00.1 Bradycardia, unspecified; R42 Dizziness and giddiness; W01.0XXA Fall on same level from slipping, tripping and stumbling without subsequent striking against object, initial encounter; Y93.9 Activity, unspecified; Y92.002 Bathroom of unspecified non-institutional (private) residence as the place of occurrence of the external cause; Y99.9 Unspecified external cause status; Z79.899 Other long term (current) drug therapy
CPT/HCPCS: 27752; 36415; 73600; 73610; 80053; 84484; 85025; 93005; 96374; 96375; 99284; 99285; J1170; J1885; J3010

== ENCOUNTER → 2022-05-23 08:27 | Outpatient (BNVA) | payer BC, SELFPAY | PROVIDERS: PCP Nurse Practitioner Family; Visit Provider Physician Assistant | DX: Z13.89 Encounter for screening for other disorder (principal) ==

== ENCOUNTER → 2022-05-27 09:13 | Outpatient (BNVA) | payer BC, SELFPAY | PROVIDERS: PCP Nurse Practitioner Family; Visit Provider Physician Assistant | DX: Z13.89 Encounter for screening for other disorder (principal) ==

== ENCOUNTER → 2022-05-31 11:09 | Day surgery (SDC) | payer BC, SELFPAY ==
--- NOTE | 2022-05-27 09:20 | P.CONAN_ITS ---
Documented by User: Eveline Ponce NP 05/27/22 09:22 HPI - Anesthesia Eval Consult details Narrative: 62yo F for Right Ankle Fracture ORIF s/p colo with MAC 09/2021 [facility] Active Problems Active Problems: All Active Problems (Updated 05/23/22 @ 09:13 by Payal Kay) Avulsion fracture of right ankle (Acute) Depressed mood (Acute) Major depression, recurrent (Acute) Past Medical History 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 [place] everything . Reassured that anesthesia different today) Social History Social History Household Members: None Alcohol intake: former Patient Tobacco Use Status: Never used Tobacco Substance Use Type: Marijuana Are you DNR?: No Advance Directives: No Advance Directives Information Provided: Yes service: No Sexual orientation: Straight/Heterosexual Meds Allergies Allergy/AdvReac Type Severity Reaction Status Date / Time DAIRY PRODUCTS Allergy Unknown HIVES, Uncoded 05/27/22 09:32 VISION ISSUES Home Medications Medication Instructions Recorded Confirmed Last Taken Type atorvastatin 40 mg tablet 40 mg PO DAILY 02/23/20 05/31/22 05/30/22 History Exam Exam Date and Time: May 27, [id number] Pertinent Lab Results Pertinent Lab Results: Laboratory Tests 05/17/22 05/17/22 05:43 05:43 WBC 4.3 L Hgb 12.0 Hct 37.7 Plt Count 163 Sodium 142 Potassium 4.1 Chloride 108 Carbon Dioxide 28 BUN 11 Creatinine 1.06 Narrative Narrative: EKG 04/2022 Vent. Rate : 046 BPM ? ? Atrial Rate : 046 BPM ?? P-R Int : 250 ms? QRS Dur : 080 ms ? ? QT Int : 466 ms ? ? ? P-R-T Axes : 053 013 009 degrees ?? QTc Int : 407 ms ? Sinus bradycardia with 1st degree A-V block Nonspecific T wave abnormality Abnormal ECG When compared with ECG of 29-MAR-2021 12:35, Nonspecific T wave abnormality now evident in Lateral leads Assessment and Plan Assessment Anesthesia Assessment: Chart Reviewed Final Anesthetic Review Family History of Problems with Anesthesia: No History of Problems with Anesthesia: Yes (?Had conscious sedation for last colonoscopy. [place] everything . 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 Hyperlipidemia Hypertension Lichen sclerosus Palpitations Tonsillectomy planned Tremor Surgical History Surgical History History of appendectomy History of blepharoplasty History of ptosis repair History of tubal ligation Hx of colonoscopy Status post LASIK surgery Social History Social History Household Members: None Alcohol intake: former Patient Tobacco Use Status: Never used Tobacco Substance Use Type: Marijuana Are you DNR?: No Advance Directives: No Advance Directives Information Provided: Yes service: No Sexual orientation: Straight/Heterosexual Meds Allergies Allergy/AdvReac Type Severity Reaction Status Date / Time DAIRY PRODUCTS Allergy Unknown HIVES, Uncoded 05/27/22 09:32 VISION ISSUES Home Medications Medication Instructions Recorded Confirmed Last Taken Type atorvastatin 40 mg tablet 40 mg PO DAILY 02/23/20 05/31/22 05/30/22 History Exam Airway Mallampati Class: I TM Dist: >3cm Neck ROM: Full Heart: rrr Lungs: cta Assessment and Plan Assessment Anesthesia Assessment: Anesthesia Plan Discussed Final Anesthetic Review NPO: Yes ASA Class: II Final Preanesthetic Review: No Changes in Pt Med Stat, Meds/Allgs Chart Revie wed, Consent Obtained/Reviewed and Anes Risks/Benef Reviewed Patient Risk: Low Procedure Risk: Low Anesthetic Plan Anesthetic Plan: GA, Regional Block and Agree w/ Assess. and Plan Disposition: Standard PACU
[2022-05-31] VITALS (11 sets, daily range): BP systolic 151–189; BP diastolic 56–94; PULSE 90–110; RESP 17–32; TEMP 36.6–36.8; O2SAT 95–100; BMI 29.9
--- NOTE | ~2022-05-31 | FL_ITS ---
EXAMINATION: XR FLUOROSCOPY WITH IMAGES CLINICAL INFORMATION: Fracture dislocation right ankle, reduction. COMPARISON: Radiographs right ankle 05/17/2022 TECHNIQUE: Fluoroscopy Supervised By: Dr. Leandro Campos. Fluoroscopy Time: 0.5 minutes. Cumulative Dose: 1.09 mGy. DAP: 0.0190 Gycm2. Images: 4. FINDINGS: There is been open reduction internal fixation of the bimalleolar fracture. The hardware is intact. Fracture fragments are in near-anatomic alignment. No dislocation. Ankle mortise is symmetric. FL/FL guidance in OR IMPRESSION: Status post open reduction internal fixation bimalleolar fracture.
[2022-05-31] MEDS: Lactated Ringers 1,000 ML 100 ML IVCONT (12:16)
--- NOTE | 2022-05-31 13:23 | MHC.SHP ---
Pre-Procedural Eval Section A Date of Service: 05/31/22 The patient is an INPATIENT: No Changes since office visit: No Cold of Flu in the past 2 weeks, No New Medical Problems, No Changes in Medication and No Patient answered all questions The History & Physical has been completed within 30 days and I have reviewed it.: Yes Section B Chief Complaint: Other fracture of right lower leg, Allergies: Allergies Allergy/AdvReac Type Severity Reaction Status Date / Time DAIRY PRODUCTS Allergy Unknown HIVES, Uncoded 05/27/22 09:32 VISION ISSUES Plan I have reviewed the history and physical and performed a pertinent physical examination on my patient. No changes have occurred unless specified. Time Spent With Patient Time: Total time managing care of this patient today ____ minutes.
--- NOTE | 2022-05-31 15:05 | PM.OP ---
Brief Operative Note Date of Service: 05/31/22 Pre-op diagnosis: right ankle bimalleolar fracture Post-op diagnosis: same Procedure: 1) ORIF right ankle kylie 2) ORIF Right ankle Syndesmosis Implants: [place] lateral locking plate [place] 40 mm 4.0 cannulated cancellous screws x2 [place] 2 hole 1/3 tubular plate Arthrex syndesmosis Tightrope Surgeon: Leandro Campos MD Anesthesia: GETA and regional Was an Horse Wrangler used for this Procedure?: Yes Horse Wrangler: Rita Anthony Estimated blood loss (mL): 50 Tourniquet time (min): 65 IV fluids (mL): 1,000 Pathology: none sent Condition: stable Disposition: PACU
[2022-05-31] MEDS: oxyCODONE HCl Immed Release 5 MG TABLET PO (15:43)
[2022-05-31] MEDS: fentaNYL citrate/PF 100 MCG/2 ML VIAL 25 MCG IVPUSH ×4 (15:45→16:00)
--- NOTE | 2022-06-11 12:54 | P.OP_ITS ---
Operative Note Operative Note Date of Service: 05/31/22 Narrative: Date of Service: 05/31/22 Pre-op diagnosis: right ankle bimalleolar fracture Post-op diagnosis: same Procedure: 1) ORIF right ankle kylie 2) ORIF Right ankle Syndesmosis Implants: [place] lateral locking plate [place] 40 mm 4.0 cannulated cancellous screws x2 [place] 2 hole 1/3 tubular plate Arthrex syndesmosis Tightrope Surgeon: Leandro Campos MD Anesthesia: GETA and regional Was an System Safety Engineer used for this Procedure?: Yes System Safety Engineer: Rita Anthony Estimated blood loss (mL): 50 Tourniquet time (min): 65 IV fluids (mL): 1,000 Pathology: none sent Condition: stable Disposition: PACU Procedure in detail: Patient was brought to the operating room and placed supine on the operative table. All bony prominences were well padded and a time-out was called to identify proper site proper procedure proper surgeon. IV antibiotics per weight were administered. I began by exsanguinating limb is slightly tourniquet to 300 mm Hg. I then made a standard posterolateral incision over the fibula. Full- thickness flaps were taken down to the fibular shaft and distal fibula. The fracture was identified and cleaned with a combination of curette, rongeur and irrigation. A lobster claw was used to provisionally reduce the fracture and a distal fibular locking plate was applied using standard AO technique. Biplanar fluoroscopy was used to confirm hardware position and fracture reduction. Once I was satisfied that both of these were acceptable I irrigated copiously and turned my attention to the medial side. The transverse medial malleolar fracture was identified after skin incision. Full-thickness skin flaps were developed and, with a sharp tenaculum, the fracture was reduced. 2 threaded K-wires were then placed from distal to proximal and perpendicular to the fracture. Biplanar fluoroscopy was used to confirm positioning and then they were overdrilled and 2 40 mm 4.0 partially- threaded cannulated cancellous screws were placed across the fracture. I was satisfied with the position and the fracture reduction based on biplanar fluoroscopy. This syndesmosis was tested using external rotation test and was found to be unstable. I then drilled a 3.2mm tunnel through the lateral plate and out the medial tibial cortex. A Tightrope device was placed and the button was flipped over the medialtibial cortex. The bone was very soft, however so I elected to place a 2 hole plate and through that I reduced the syndesmosis and then tensioned the tightrope. I weas satisfied with the biplanar radiographs. Therefore all instrumentation was removed and copious irrigation was performed. Absorbable suture and cedric were used for closure and the patient was placed into sterile dressings and a well-padded posterior splint. Tourniquet was let down and the patient was extubated brought to recovery room in stable condition there were no known complications.
== END | disposition home or self-care (01) ==
PROVIDERS: PCP Nurse Practitioner Family; Visit Provider Orthopaedic Surgery
PROC: (CPT 27814; principal; 2022-05-31 13:00)
DX: S82.841A Displaced bimalleolar fracture of right lower leg, initial encounter for closed fracture (principal); W01.0XXA Fall on same level from slipping, tripping and stumbling without subsequent striking against object, initial encounter; Y93.89 Activity, other specified; Y92.039 Unspecified place in apartment as the place of occurrence of the external cause; Y99.8 Other external cause status; G25.0 Essential tremor; I10 Essential (primary) hypertension; E78.5 Hyperlipidemia, unspecified; L90.0 Lichen sclerosus et atrophicus; R00.2 Palpitations; Z79.899 Other long term (current) drug therapy; F12.90 Cannabis use, unspecified, uncomplicated
CPT/HCPCS: 27814; 27829; C1713; J0690; J1170; J2250; J2370; J2795; J3010

== ENCOUNTER → 2022-06-07 11:27 | Outpatient (BNVA) | payer BC, SELFPAY | PROVIDERS: PCP Nurse Practitioner Family; Visit Provider Physician Assistant | DX: S82.891A Other fracture of right lower leg, initial encounter for closed fracture (principal) ==

== ENCOUNTER 2022-06-14 10:05 | Outpatient (REF) | payer BC, SELFPAY ==
--- NOTE | ~2022-06-14 | XR_ITS ---
EXAMINATION: XR ANKLE, RIGHT CLINICAL INFORMATION: Pain COMPARISON: April 2022 TECHNIQUE: AP, lateral, and mortise views of the right ankle. FINDINGS: Plate and multiple screws across the distal fibular fracture, 2 threaded screw through the medial malleolus, ORIF, bone alignments restored. Ankle mortise is preserved. Talar dome is intact. XR/XR ankle RT min 3V IMPRESSION: * Status post ORIF bimalleolar fractures. * Bone alignments restored.
== END 2022-06-14 10:06 | disposition home or self-care (01) ==
LOC: HO.HOSX 10:05
PROVIDERS: Visit Provider Physician Assistant
DX: S82.891D Other fracture of right lower leg, subsequent encounter for closed fracture with routine healing (principal)
CPT/HCPCS: 29405; 73610

== ENCOUNTER → 2022-06-28 12:27 | Outpatient (BNVA) | payer BC, SELFPAY | PROVIDERS: PCP Nurse Practitioner Family; Visit Provider Physician Assistant | DX: S82.891A Other fracture of right lower leg, initial encounter for closed fracture (principal) | CPT/HCPCS: 29405 ==

== ENCOUNTER 2022-07-12 | Outpatient (REF) | payer BC, SELFPAY ==
--- NOTE | ~2022-07-12 | XR_ITS ---
EXAMINATION: XR ANKLE, RIGHT CLINICAL INFORMATION: Ankle pain COMPARISON: 06/14/2022 TECHNIQUE: AP, lateral, and mortise views of the right ankle. FINDINGS: Redemonstration of distal fibular plate and screws device and medial malleolus are screws and surgical plate without evidence of hardware complication. There is mild widening of the ankle mortise which measures 5 mm. Diffuse osteopenia. No acute fracture. XR/XR ankle RT min 3V IMPRESSION: Mild widening of the ankle mortise which measures 5 mm. No evidence of hardware complication. No acute fracture. Diffuse osteopenia.
== END 2022-07-12 00:01 | disposition home or self-care (01) ==
LOC: HO.HOSX
PROVIDERS: Visit Provider Physician Assistant
DX: S82.891D Other fracture of right lower leg, subsequent encounter for closed fracture with routine healing (principal)
CPT/HCPCS: 73610

== ENCOUNTER 2022-08-23 08:33 | Outpatient (REF) | payer BC, SELFPAY ==
--- NOTE | ~2022-08-23 | XR_ITS ---
EXAMINATION: XR ANKLE, RIGHT CLINICAL INFORMATION: Pain COMPARISON: Radiographs dated 07/08/2022. TECHNIQUE: AP, lateral, and mortise views of the right ankle. FINDINGS: There is bony demineralization. An intact orthopedic plate and fixator screws are applied to the distal fibula. Additional orthopedic screws are applied to the medial malleolus. Tightrope hardware is noted. A residual fracture line is seen of the medial malleolus. The ankle mortise is intact. There is no right ankle joint effusion. Boehler's angle is normal. There are very small posterior and plantar calcaneal spurs. No foreign body is seen. XR/XR ankle RT min 3V IMPRESSION: There is intact orthopedic hardware status-post ORIF of bimalleolar fracture fragments. A persistent fracture line is noted of the medial malleolus.
== END 2022-08-23 08:34 | disposition home or self-care (01) ==
LOC: HO.HOSX 08:33
PROVIDERS: Visit Provider Physician Assistant
DX: S82.891D Other fracture of right lower leg, subsequent encounter for closed fracture with routine healing (principal)
CPT/HCPCS: 73610

== ENCOUNTER 2022-09-20 07:48 | Outpatient (REF) | payer BC, SELFPAY ==
--- NOTE | ~2022-09-20 | XR_ITS ---
EXAMINATION: XR ANKLE, RIGHT CLINICAL INFORMATION: Pain. COMPARISON: Previous x-ray most recent 08/23/2022 TECHNIQUE: AP, lateral, and mortise views of the right ankle. FINDINGS: There are 2 screws transfixing the medial malleolar fracture. Fracture line still seen. There is a plate and screws seen in the distal fibular shaft. No fibular shaft fracture seen. Tightrope hardware across the distal tibia and fibula unchanged. Bones are osteopenic. The ankle mortise is normal. Soft tissues are normal. There are small calcaneal spurs. Small osteophyte anterior talus. XR/XR ankle RT min 3V IMPRESSION: Stable appearance of orthopedic hardware. Medial malleolar fracture is still seen.
== END 2022-09-20 07:49 | disposition home or self-care (01) ==
LOC: HO.HOSX 07:48
PROVIDERS: Visit Provider Physician Assistant
DX: S82.891A Other fracture of right lower leg, initial encounter for closed fracture (principal)
CPT/HCPCS: 73610